=== PATIENT | female | born 1935 | race Caucasian/White ===

== ENCOUNTER 2016-12-08 17:46 | Emergency (ER) | payer MEDICARE, BC ==
--- NOTE | 2016-12-08 18:33 | ER Document Report ---
ED Medical Screen (RME) - General Chief Complaint: General Weakness Stated Complaint: FEVER Time Seen by Provider: 12/08/16 18:26 Mode of Arrival: Wheelchair Information source: Relative Cannot obtain history due to: Altered mental status TRAVEL OUTSIDE OF THE [place] IN LAST 30 DAYS: No - HPI Onset: This morning Onset/Duration: Gradual - WORSENING DURING THE DAY Quality of pain: No pain Associated Symptoms: Weakness, Other - UNSTEADY ON FEET, DECREASED APPETITE. denies: Chills, Fever Exacerbated by: Denies Relieved by: Denies Similar symptoms previously: No Recently seen / treated by doctor: No Notes: 12/08/16 18:30 WORKED IN [employer] YESTERDAY, IN [employer]+ [employer]. - Related Data Smoking: Non-smoker Frequency of alcohol use: None Drug Abuse: None Allergies/Adverse Reactions: oxytetracycline [From Terramycin] Allergy (Verified 12/08/16 17:53) oxytetracycline HCl [From Terramycin] Allergy (Verified 12/08/16 17:53) Sulfa (Sulfonamide Antibiotics) Allergy (Verified 12/08/16 17:53) Unknown reaction Past Medical History - General Information source: Relative - Social History Chew tobacco use (# tins/day): No Frequency of alcohol use: None Drug Abuse: None Lives with: Alone - DAUGHTER NEXT DOOR Family history: Reviewed & Not Pertinent - Past Medical History Cardiac Medical History: Reports: None Denies: Hx Heart Attack, Hx Hypertension Pulmonary Medical History: Reports: None Denies: Hx Asthma EENT Medical History: Reports: None Neurological Medical History: Reports: None. Denies: Hx Cerebrovascular Accident, Hx Seizures Endocrine Medical History: Reports: None Renal/ Medical History: Reports: None. Denies: Hx Peritoneal Dialysis Malignancy Medical History: Reports: None GI Medical History: Reports: Hx Hiatal Hernia. Denies: Hx Hepatitis, Hx Ulcer Musculoskeltal Medical History: Reports Hx Arthritis - RA Psychiatric Medical History: Reports: None Infectious Medical History: Denies: Hx Hepatitis Surgical Hx: Negative Past Surgical History: Denies: Hx Mastectomy, Hx Open Heart Surgery, Hx Pacemaker Review of Systems - Review of Systems Constitutional: Weakness EENT: No symptoms reported Cardiovascular: No symptoms reported Respiratory: No symptoms reported Gastrointestinal: Poor appetite Genitourinary: No symptoms reported. denies: Incontinence Female Genitourinary: Post menopausal Musculoskeletal: No symptoms reported Skin: No symptoms reported Neurological/Psychological: Other - INCREASED FORGETFULNESS Physical Exam - Vital signs Vitals: Temp Pulse Resp BP Pulse Ox 99.3 F 88 20 148/74 H 94 12/08/16 17:52 12/08/16 17:52 12/08/16 17:52 12/08/16 17:52 12/08/16 17:52 Interpretation: Hypertensive. No: Tachycardic, Tachypneic, Febrile - General General appearance: Appears well, Alert In distress: None - HEENT Head: Normocephalic Eyes: Normal. No: Pale conjunctiva Conjunctiva: Normal Ears: Normal Nasal: Normal Mouth/Lips: Normal Mucous membranes: Normal Pharynx: Normal - Respiratory Respiratory status: No respiratory distress Breath sounds: Normal - Cardiovascular Rhythm: Regular Heart sounds: Normal auscultation Murmur: No - Abdominal Inspection: Normal Distension: No distension - Extremities General upper extremity: Normal inspection General lower extremity: Normal inspection Course - Vital Signs Vital signs: Temp Pulse Resp BP Pulse Ox 99.3 F 88 20 148/74 H 94 12/08/16 17:52 12/08/16 17:52 12/08/16 17:52 12/08/16 17:52 12/08/16 17:52
[2016-12-08 19:07] LABS: ABSOLUTE BASOPHILS # (AUTO) 0.1 10^3/uL (0.0-0.2); ABSOLUTE LYMPHOCYTES (AUTO) 1.8 10^3/uL (0.5-4.7); ABSOLUTE MONOCYTES (AUTO) 1.3 10^3/uL (0.1-1.4); ABSOLUTE NEUT (AUTO) 14.3 10^3/uL (1.7-8.2); BASOPHILS % (AUTO) 0.4 % (0-2); HEMATOCRIT 45.2 % (36.0-47.0); HEMOGLOBIN 14.9 g/dL (12.0-15.5); HGB HCT DIFFERENCE -0.5; LYMPHOCYTES % (AUTO) 10.5 % (13-45); MEAN CORPUSCULAR HEMOGLOBIN 28.8 pg (27.0-33.4); MEAN CORPUSCULAR HGB CONC 32.9 g/dL (32.0-36.0); MEAN CORPUSCULAR VOLUME 88 fl (80-97); MONOCYTES % (AUTO) 7.5 % (3-13); RED BLOOD COUNT 5.15 10^6/uL (3.72-5.28); RED CELL DISTRIBUTION WIDTH 13.5 % (11.5-14.0); SEGMENTED NEUTROPHILS % (AUTO) 81.6 % (42-78); WHITE BLOOD COUNT 17.5 10^3/uL (4.0-10.5)
--- NOTE | 2016-12-08 19:20 | ER Document Report ---
ED General - General Chief Complaint: General Weakness Stated Complaint: FEVER Time Seen by Provider: 12/08/16 18:26 Mode of Arrival: Wheelchair Notes: Patient is a 81 year old female that comes to the ED for chief complaint of weakness, body aches, abdominal pain, an episode of vomiting, and feeling hot like she had a fever. She comes with her daughter from home. She states she has felt this way all day, spent most of the day in the garden yesterday in the 95 degree heat. She had a normal nonbloody bowel movement yesterday. She denies hematemesis. She denies headache, chest pain, shortness of breath, flank pain, dysuria, cough. Past medical history of rheumatoid arthritis, on both Humira and methotrexate, she denies any other medical history other than appendectomy and hysterectomy. TRAVEL OUTSIDE OF THE [place] IN LAST 30 DAYS: No - Related Data Allergies/Adverse Reactions: oxytetracycline [From Terramycin] Allergy (Verified 12/08/16 17:53) oxytetracycline HCl [From Terramycin] Allergy (Verified 12/08/16 17:53) Sulfa (Sulfonamide Antibiotics) Allergy (Verified 12/08/16 17:53) Unknown reaction Past Medical History - General Information source: Patient, Relative - Social History Smoking Status: Never Smoker Chew tobacco use (# tins/day): No Frequency of alcohol use: None Drug Abuse: None Lives with: Alone - DAUGHTER NEXT DOOR Family History: Reviewed & Not Pertinent - Past Medical History Cardiac Medical History: Reports: None Denies: Hx Heart Attack, Hx Hypertension Pulmonary Medical History: Reports: None Denies: Hx Asthma EENT Medical History: Reports: None Neurological Medical History: Reports: None. Denies: Hx Cerebrovascular Accident, Hx Seizures Endocrine Medical History: Reports: None Renal/ Medical History: Reports: None. Denies: Hx Peritoneal Dialysis Malignancy Medical History: Reports: None GI Medical History: Reports: Hx Hiatal Hernia. Denies: Hx Hepatitis, Hx Ulcer Musculoskeltal Medical History: Reports Hx Arthritis - RA Psychiatric Medical History: Reports: None Infectious Medical History: Denies: Hx Hepatitis Surgical Hx: Negative Past Surgical History: Denies: Hx Mastectomy, Hx Open Heart Surgery, Hx Pacemaker - Immunizations Hx Pneumococcal Vaccination: 05/26/07 Review of Systems - Review of Systems Constitutional: See HPI EENT: No symptoms reported Cardiovascular: No symptoms reported Respiratory: No symptoms reported Gastrointestinal: See HPI Genitourinary: No symptoms reported Female Genitourinary: No symptoms reported Musculoskeletal: No symptoms reported Skin: No symptoms reported Hematologic/Lymphatic: No symptoms reported Neurological/Psychological: No symptoms reported Physical Exam - Vital signs Vitals: Temp Pulse Resp BP Pulse Ox 99.3 F 88 20 148/74 H 94 12/08/16 17:52 12/08/16 17:52 12/08/16 17:52 12/08/16 17:52 12/08/16 17:52 Interpretation: Normal - General General appearance: Appears well, Alert In distress: None - HEENT Head: Normocephalic, Atraumatic Eyes: Normal Conjunctiva: Normal Extraocular movements intact: Yes Eyelashes: Normal Pupils: PERRL Sinus: Normal Nasal: Normal Mouth/Lips: Normal Mucous membranes: Normal Pharynx: Normal Neck: Normal. No: Meningismus - Respiratory Respiratory status: No respiratory distress Chest status: Nontender Breath sounds: Normal. No: Decreased air movement, Wheezing Chest palpation: Normal - Cardiovascular Rhythm: Regular. No: Tachycardia Heart sounds: Normal auscultation, S1 appreciated, S2 appreciated Murmur: No - Abdominal Inspection: Normal Distension: No distension Bowel sounds: Normal Tenderness: Tender - There is some tenderness in the bilateral lower quadrants, upper abdomen is completely benign, no rigidity, guarding, or rebound tenderness. Bowel sounds present. Organomegaly: No organomegaly - Back Back: Normal, Nontender. No: Tender - Extremities General upper extremity: Normal inspection, Nontender, Normal ROM, Normal strength General lower extremity: Normal inspection, Nontender, Normal ROM, Normal strength - Neurological Neuro grossly intact: Yes Cognition: Normal Orientation: AAOx4 Javier Coma Scale Eye Opening: Spontaneous [place] Coma Scale Verbal: Oriented [place] Coma Scale Motor: Obeys Commands Javier Coma Scale Total: 15 Speech: Normal Motor strength normal: LUE, RUE, LLE, RLE Sensory: Normal - Psychological Associated symptoms: Normal affect, Normal mood - Skin Skin Temperature: Warm Skin Moisture: Dry Skin Color: Normal Course - Re-evaluation Re-evalutation: Patient is actually quite well-appearing, she is smiling, talkative, patient does have some lower abdominal tenderness on initial examination but she is not toxic in appearance. Vital signs unremarkable including no fever, tachycardia, or hypotension. Leukocytosis at 17.5, could be from vomiting, this is nonspecific. Chemistry generally unremarkable, urine showing large leukocyte esterase and some white blood cells with no nitrates or bacteria. Patient with no dysuria or flank pain. Because of reported vomiting, abdominal pain, and leukocytosis decision was made to perform CAT scan imaging, however this shows absolutely no acute abnormality. On reevaluation patient stating that she wants to get up and walk , she ambulated without any difficulty, she states her pain is gone and she feels great. Did discuss potential infections although patient does not have a cough, any abnormal lung auscultation, her abdomen is now soft, she has no nuchal rigidity or headache, she has no current complaints. Also discussed potential admission to the hospital because of her age and immunocompromise condition, however they are requesting to leave. Patient will be covered for urinary tract infection with Keflex, given dose now, cultures of blood and urine placed, discussed recommended follow-up and strict return precautions. The patient and daughter state understanding and agreement. - Vital Signs Vital signs: Temp Pulse Resp BP Pulse Ox 99.4 F 88 24 H 121/60 96 12/08/16 23:27 12/08/16 17:52 12/08/16 23:04 12/08/16 23:04 12/08/16 23:04 - Laboratory Result Diagrams: 12/08/16 18:45 12/08/16 19:35 Laboratory results interpreted by me: 12/08/16 12/08/16 12/08/16 18:45 19:35 20:45 WBC 17.5 H Seg Neutrophils % 81.6 H Lymphocytes % 10.5 L Absolute Neutrophils 14.3 H Sodium 134.3 L Est GFR (Non-Af Amer) 54 L Glucose 117 H Total Protein 8.8 H Urine Ketones TRACE H Urine Blood SMALL H Ur Leukocyte Esterase SMALL H Discharge - Discharge Clinical Impression: Vomiting Qualifiers: Vomiting type: unspecified Vomiting Intractability: non-intractable Nausea presence: unspecified Qualified Code(s): R11.10 - Vomiting, unspecified Abdominal pain Qualifiers: Abdominal location: generalized Qualified Code(s): R10.84 - Generalized abdominal pain Condition: Stable Disposition: HOME, SELF-CARE Additional Instructions: Your cat scan shows no concerning abnormality. Your urine shows possible developing infection, take the antibiotic as prescribed. Follow up with your provider in the next several days. Return immediately if you develop any concerning symptoms - returned or worsening abdominal pain, vomiting, fever, difficulty breathing, or any other concerning symptoms. Prescriptions: Cephalexin Monohydrate [Keflex 500 mg Capsule] 500 mg PO BID #10 capsule
--- NOTE | 2016-12-08 20:04 | RADIOLOGY REPORT (SQ) ---
EXAM DESCRIPTION: CT HEAD WITHOUT COMPLETED DATE/TIME: 12/08/2016 7:46 pm REASON FOR STUDY: ALTERED MENTAL STATUS COMPARISON: None. TECHNIQUE: Axial images acquired through the brain without intravenous contrast. Images reviewed wi th bone, brain and subdural windows. Images stored on PACS. All CT scanners at this facility use dose modulation, iterative reconstruction, and/or weight based d osing when appropriate to reduce radiation dose to as low as reasonably achievable (ALARA). [facility]: Dose Right [facility]: CareDose [facility]: Dose Right [facility]: Teradose 4D [facility]: Smart Cause.it RADIATION DOSE: Up-to-date CT equipment and radiation dose reduction techniques were employed. CTDIv ol: 64.6 mGy. DLP: 1163 mGy-cm. mGy. LIMITATIONS: Mild motion artifact. This does not appear to significantly limit evaluation of the br ain. FINDINGS: VENTRICLES: Normal size and contour. CEREBRUM: No masses. No hemorrhage. No midline shift. Normal armstrong/white matter differentiation. N o evidence for acute infarction. CEREBELLUM: No masses. No hemorrhage. No alteration of density. No evidence for acute infarction. EXTRAAXIAL SPACES: No fluid collections. No masses. ORBITS AND GLOBE: No intra- or extraconal masses. Normal contour of globe without masses. CALVARIUM: No fracture. PARANASAL SINUSES: No fluid or mucosal thickening. SOFT TISSUES: No mass or hematoma. OTHER: No other significant finding. IMPRESSION: NORMAL BRAIN CT WITHOUT CONTRAST. TECHNICAL DOCUMENTATION: JOB ID: [id number] Quality ID # [id number]: Final reports with documentation of one or more dose reduction techniques (e.g., Au tomated exposure control, adjustment of the mA and/or kV according to patient size, use of iterative reconstruction technique) 2010 [employer]- All Rights Reserved
[2016-12-08 20:05] LABS: ALANINE AMINOTRANSFERASE 26 U/L (9-52); ALBUMIN 4.4 g/dL (3.5-5.0); ALKALINE PHOSPHATASE 79 U/L (38-126); ANION GAP 12 (5-19); ASPARTATE AMINO TRANSFERASE 27 U/L (14-36); BILIRUBIN,DIRECT 0.3 mg/dL (0.0-0.4); BILIRUBIN,TOTAL 0.9 mg/dL (0.2-1.3); BLOOD UREA NITROGEN 15 mg/dL (7-20); CALCIUM 9.2 mg/dL (8.4-10.2); CARBON DIOXIDE 23 mmol/L (22-30); CHLORIDE 99 mmol/L (98-107); CREATINE KINASE 107 U/L (30-135); CREATININE RESULT 0.99 mg/dL (0.52-1.25); GLUCOSE 117 mg/dL (75-110); POTASSIUM 4.6 mmol/L (3.6-5.0); SODIUM 134.3 mmol/L (137-145); TOTAL PROTEIN 8.8 g/dL (6.3-8.2)
--- NOTE | 2016-12-08 20:09 | RADIOLOGY REPORT (SQ) ---
EXAM DESCRIPTION: CHEST PA/LAT COMPLETED DATE/TIME: 12/08/2016 7:53 pm REASON FOR STUDY: weakness, possible fever, immunocompromised COMPARISON: 2010. TECHNIQUE: Frontal and lateral radiographic views of the chest acquired. NUMBER OF VIEWS: Two view. LIMITATIONS: None. FINDINGS: LUNGS AND PLEURA: Mild prominence of lung markings, patchy right greater than left. Poten tially related to bronchitis. Consolidating pneumonia not appreciated. No nodules or masses or pleu ral fluid. MEDIASTINUM AND HILAR STRUCTURES: No masses or contour abnormalities. HEART AND VASCULAR STRUCTURES: Heart normal size. No evidence for failure. BONES: No acute findings. HARDWARE: None in the chest. OTHER: No other significant finding. IMPRESSION: Mild lung changes as above but no clear evidence of pneumonia. TECHNICAL DOCUMENTATION: JOB ID: [id number] [employer]- All Rights Reserved
[2016-12-08 20:20] LABS: TROPONIN I < 0.012 ng/mL
[2016-12-08] MEDS ORDERED: ONDANSETRON HCL INJ/PF 4 MG/2 ML SDV IV ONE (20:30)
[2016-12-08 21:05] LABS: APPEARANCE,URINE CLEAR; BILIRUBIN,URINE NEGATIVE (NEGATIVE); GLUCOSE, URINE NEGATIVE (NEGATIVE); KETONES,URINE TRACE mg/dL (NEGATIVE); LEUKOCYTE ESTERASE,URINE SMALL (NEGATIVE); NITRITE,URINE NEGATIVE (NEGATIVE); PROTEIN,URINE NEGATIVE (NEGATIVE); URINE SPECIFIC GRAVITY 1.008; UROBILINOGEN,URINE NEGATIVE mg/dL (<2.0)
--- NOTE | 2016-12-08 22:01 | EKG REPORT ---
SEVERITY:- BORDERLINE ECG - SINUS RHYTHM BORDERLINE INFERIOR Q WAVES : Confirmed by: Alek Conde MD 08-Dec-2016 22:00:46
--- NOTE | 2016-12-08 23:15 | RADIOLOGY REPORT (SQ) ---
EXAM DESCRIPTION: CT ABD/PELVIS WITH IV ORAL COMPLETED DATE/TIME: 12/08/2016 10:52 pm REASON FOR STUDY: abdominal pain, vomiting, leukocytosis COMPARISON: None. TECHNIQUE: CT scan of the abdomen and pelvis performed with intravenous and oral contrast using jim francis scanning technique with dynamic intravenous contrast injection. Images reviewed with lung, soft t issue, and bone windows. Reconstructed coronal and sagittal MPR images reviewed. Delayed images for e valuation of the urinary system also acquired. All images stored on PACS. All CT scanners at this facility use dose modulation, iterative reconstruction, and/or weight based d osing when appropriate to reduce radiation dose to as low as reasonably achievable (ALARA). [facility]: Dose Right [facility]: CareDose [facility]: Dose Right [facility]: Teradose 4D [facility]: Fantasy [employer] CONTRAST TYPE AND DOSE: contrast/concentration: Isovue 370.00 mg/ml; Total Contrast Delivered: 62.0 ml; Total Saline Delivered: 65.0 ml RENAL FUNCTION: Creatinine 0.99 RADIATION DOSE: Up-to-date CT equipment and radiation dose reduction techniques were employed. CTDIv ol: 5.1 - 6.3 mGy. DLP: 553 mGy-cm.. LIMITATIONS: None. FINDINGS: LOWER CHEST: No significant findings. No nodules or infiltrates. LIVER: Normal size. No masses. No dilated ducts. SPLEEN: Normal size. No focal lesions. PANCREAS: No masses. No significant calcifications. No adjacent inflammation or peripancreatic fluid collections. Pancreatic duct not dilated. GALLBLADDER: No identified stones by CT criteria. No inflammatory changes to suggest cholecystitis. ADRENAL GLANDS: No significant masses or asymmetry. RIGHT KIDNEY AND URETER: No solid masses. No significant calcification. No hydronephrosis or hydroure ter. LEFT KIDNEY AND URETER: No solid masses. No significant calcification. No hydronephrosis or hydrouret er. AORTA AND VESSELS: No aneurysm. No dissection. Renal arteries, SMA, celiac without stenosis. RETROPERITONEUM: No retroperitoneal adenopathy, hemorrhage or masses. BOWEL AND PERITONEAL CAVITY: Distal bowel diverticulosis. No active inflammatory changes. No eviden ce of bowel obstruction, ascites or abnormal gas. APPENDIX: Not visualized. PELVIS: No significant masses. Normal bladder. No free fluid. ABDOMINAL WALL: No masses. No hernias. BONES: No significant or acute findings. OTHER: No other significant finding. IMPRESSION: No acute or suspicious abdominopelvic abnormality. TECHNICAL DOCUMENTATION: JOB ID: [id number] Quality ID # [id number]: Final reports with documentation of one or more dose reduction techniques (e.g., Au tomated exposure control, adjustment of the mA and/or kV according to patient size, use of iterative reconstruction technique) 2010 [employer]- All Rights Reserved
[2016-12-08] MEDS ORDERED: CEPHALEXIN 500 MG CAPSULE PO ONE (23:30)
[2016-12-08] MEDS ORDERED: ONDANSETRON ODT 4 MG TAB (6 TAB/DSPK) PO PRN (23:30)
[2016-12-08 23:46] VITALS: BP 121/60
== END 2016-12-08 23:46 | disposition home or self-care (01) ==
LOC: ER 17:46
DX: R11.10 Vomiting, unspecified (principal); R10.84 Generalized abdominal pain; R53.1 Weakness; R50.9 Fever, unspecified; R52 Pain, unspecified
CPT/HCPCS: 93005; 99285; 96374; 36415; 87040; 87086; 82553; 82550; 85025; 87088; 80053; 81001; 84484; 71020; 70450; 74177; 93010; A9270 ×2; J2405

== ENCOUNTER 2016-12-19 13:36 | Inpatient (IN) | payer MEDICARE, BC ==
[2016-12-19] MEDS ORDERED: ACETAMINOPHEN 325 MG TABLET PO ONE (14:09)
[2016-12-19] MEDS ORDERED: NORMAL SALINE 1000 ML 1,000 ML IV PRN ×2 (14:11→16:59)
--- NOTE | 2016-12-19 14:11 | ER Document Report ---
ED Fever - General Chief Complaint: Fever Stated Complaint: WEAKNESS Time Seen by Provider: 12/19/16 13:51 Mode of Arrival: Stretcher Information source: Patient, Relative - daughter Parul TRAVEL OUTSIDE OF THE [place] IN LAST 30 DAYS: No - HPI Patient complains to provider of: Generalized weakness, fever Onset: Last week Onset/Duration: Persistent Quality of pain: Achy Severity: Moderate Pain Level: 3 Associated symptoms: Nausea, Weakness Similar symptoms previously: Yes Recently seen / treated by doctor: Yes Notes: Patient is a 81-year-old female brought to the emergency room by EMS with daughter at bedside, for complaints of generalized weakness has been persistent for the past week, she is also noted to have a fever of 102 today, daughter does report decreased p.o. intake over the last 1-2 days, patient has been reporting abdominal pain, mainly in the suprapubic region as well, no recent injury, no sick contacts, she was seen in this emergency room for generalized weakness approximately 1 week ago, followed up with her jboss architect as well, but daughter reports that she has not had any improvement of symptoms over the past week - Related Data Allergies/Adverse Reactions: oxytetracycline [From Terramycin] Allergy (Verified 12/19/16 14:08) oxytetracycline HCl [From Terramycin] Allergy (Verified 12/19/16 14:08) Sulfa (Sulfonamide Antibiotics) Allergy (Verified 12/19/16 14:08) Unknown reaction Past Medical History - General Information source: Patient, Relative - Social History Smoking Status: Never Smoker Family History: Reviewed & Not Pertinent Patient has suicidal ideation: No Patient has homicidal ideation: No - Past Medical History Cardiac Medical History: Denies: Hx Heart Attack, Hx Hypertension Pulmonary Medical History: Denies: Hx Asthma Neurological Medical History: Denies: Hx Cerebrovascular Accident, Hx Seizures Renal/ Medical History: Denies: Hx Peritoneal Dialysis GI Medical History: Reports: Hx Hiatal Hernia. Denies: Hx Hepatitis, Hx Ulcer Musculoskeltal Medical History: Reports Hx Arthritis - RA Infectious Medical History: Denies: Hx Hepatitis Surgical Hx: Negative Past Surgical History: Denies: Hx Mastectomy, Hx Open Heart Surgery, Hx Pacemaker - Immunizations Hx Pneumococcal Vaccination: 05/26/07 Review of Systems - Review of Systems Constitutional: Chills, Fever, Malaise, Weakness EENT: No symptoms reported Cardiovascular: No symptoms reported Respiratory: No symptoms reported Gastrointestinal: Abdominal pain, Nausea Genitourinary: Frequency Female Genitourinary: No symptoms reported Musculoskeletal: No symptoms reported Skin: No symptoms reported Hematologic/Lymphatic: No symptoms reported Neurological/Psychological: No symptoms reported -: Yes All other systems reviewed and negative Physical Exam - Vital signs Vitals: Resp BP Pulse Ox 26 H 133/65 H 95 12/19/16 13:52 12/19/16 13:52 12/19/16 13:52 Interpretation: Febrile - General General appearance: Appears well, Alert - HEENT Head: Normocephalic, Atraumatic Eyes: Normal Pupils: PERRL - Respiratory Respiratory status: No respiratory distress Chest status: Nontender Breath sounds: Normal Chest palpation: Normal - Cardiovascular Rhythm: Regular Heart sounds: Normal auscultation Murmur: No - Abdominal Inspection: Normal Distension: No distension Bowel sounds: Normal Tenderness: Tender - Suprapubic Organomegaly: No organomegaly - Back Back: Normal, Nontender - Extremities General upper extremity: Normal inspection, Nontender, Normal color, Normal ROM , Normal temperature General lower extremity: Normal inspection, Nontender, Normal color, Normal ROM , Normal temperature, Normal weight bearing. No: Danita's sign - Neurological Neuro grossly intact: Yes Cognition: Normal Orientation: AAOx4 Javier Coma Scale Eye Opening: Spontaneous Javier Coma Scale Verbal: Oriented Javier Coma Scale Motor: Obeys Commands [place] Coma Scale Total: 15 Speech: Normal Motor strength normal: LUE, RUE, LLE, RLE Sensory: Normal - Psychological Associated symptoms: Normal affect, Normal mood - Skin Skin Temperature: Warm Skin Moisture: Dry Skin Color: Normal Course - Re-evaluation Re-evalutation: 12/19/16 17:05 Patient was discussed with Dr. Gerardo, who agrees to admit patient for further evaluation and treatment of sepsis of unknown source - Vital Signs Vital signs: Temp Pulse Resp BP Pulse Ox 98.9 F 88 20 91/50 L 95 12/19/16 15:28 12/19/16 13:54 12/19/16 16:14 12/19/16 16:14 12/19/16 16:14 - Laboratory Result Diagrams: 12/19/16 14:38 12/19/16 15:57 Laboratory results interpreted by me: 12/19/16 12/19/16 12/19/16 14:38 14:38 15:13 WBC 27.2 H Seg Neuts % (Manual) 85 H Lymphocytes % (Manual) 5 L Abs Neuts (Manual) 24.5 H Sodium Carbon Dioxide Est GFR (Non-Af Amer) Calcium AST Creatine Kinase NT-Pro-B Natriuret Pep 673 H Albumin Urine Blood MODERATE H 12/19/16 15:57 WBC Seg Neuts % (Manual) Lymphocytes % (Manual) Abs Neuts (Manual) Sodium 136.4 L Carbon Dioxide 21 L Est GFR (Non-Af Amer) 59 L Calcium 7.9 L AST 77 H Creatine Kinase 2476 H NT-Pro-B Natriuret Pep Albumin 3.4 L Urine Blood - Diagnostic Test Radiology reviewed: Image reviewed, Reports reviewed - EKG Interpretation by Me EKG shows normal: Sinus rhythm Rate: Normal Rhythm: NSR When compared to previous EKG there are: No significant change - Transfer of Care Care transferred to following provider: Dr. Gerardo Critical Care Note - Critical Care Note Total time excluding time spent on procedures (mins): 45 Comments: Patient with evidence of sepsis, with hypotension, fever, leukocytosis, requiring admission to the IMCU Discharge - Discharge Clinical Impression: Sepsis Qualifiers: Sepsis type: sepsis due to unspecified organism Qualified Code(s): A41.9 - Sepsis, unspecified organism Condition: Serious Disposition: ADMITTED INPATIENT Admitting Provider: Hospitalist Unit Admitted: [facility] Referrals: JULIANN KIDD MD [Primary Care Provider] - Follow up as needed
--- NOTE | 2016-12-19 14:46 | RADIOLOGY REPORT (SQ) ---
EXAM DESCRIPTION: CHEST SINGLE VIEW COMPLETED DATE/TIME: 12/19/2016 2:32 pm REASON FOR STUDY: cough COMPARISON: 12/08/2016 EXAM PARAMETERS: NUMBER OF VIEWS: One view. TECHNIQUE: Single frontal radiographic view of the chest acquired. RADIATION DOSE: NA LIMITATIONS: None. FINDINGS: LUNGS AND PLEURA: Chronic interstitial changes. No opacities, masses or pneumothorax. No pleural effusion. MEDIASTINUM AND HILAR STRUCTURES: No masses. Contour normal. HEART AND VASCULAR STRUCTURES: Heart normal in size. Normal vasculature. BONES: No acute findings. HARDWARE: None in the chest. OTHER: No other significant finding. IMPRESSION: NO ACUTE RADIOGRAPHIC FINDING IN THE CHEST. TECHNICAL DOCUMENTATION: JOB ID: [id number]
[2016-12-19 15:03] LABS: HEMATOCRIT 40.2 % (36.0-47.0); HEMOGLOBIN 13.3 g/dL (12.0-15.5); HGB HCT DIFFERENCE -0.3; MEAN CORPUSCULAR HEMOGLOBIN 29.2 pg (27.0-33.4); MEAN CORPUSCULAR HGB CONC 33.2 g/dL (32.0-36.0); MEAN CORPUSCULAR VOLUME 88 fl (80-97); RED BLOOD COUNT 4.57 10^6/uL (3.72-5.28); WHITE BLOOD COUNT 27.2 10^3/uL (4.0-10.5)
[2016-12-19 15:27] LABS: BAND NEUTROPHILS % (MANUAL) 5 % (3-5); BASOPHILS % (MANUAL) 0 % (0-2); EOSINOPHILS % (MANUAL) 0 % (0-6); LYMPHOCYTES % (MANUAL) 5 % (13-45); TOTAL CELLS COUNTED 100
[2016-12-19 15:28] LABS: PLATELET CLUMPS PRESENT; TOXIC GRANULATION SLIGHT; TOXIC VACUOLATION PRESENT
[2016-12-19 15:29] LABS: RBC MORPHOLOGY COMMENT NORMO-CYTIC/CHROMIC
[2016-12-19 15:43] LABS: TROPONIN I < 0.012 ng/mL
[2016-12-19 16:23] LABS: ALANINE AMINOTRANSFERASE 40 U/L (9-52); ALBUMIN 3.4 g/dL (3.5-5.0); ALKALINE PHOSPHATASE 59 U/L (38-126); ANION GAP 10 (5-19); ASPARTATE AMINO TRANSFERASE 77 U/L (14-36); BILIRUBIN,DIRECT 0.3 mg/dL (0.0-0.4); BILIRUBIN,TOTAL 0.7 mg/dL (0.2-1.3); BLOOD UREA NITROGEN 16 mg/dL (7-20); CALCIUM 7.9 mg/dL (8.4-10.2); CARBON DIOXIDE 21 mmol/L (22-30); CHLORIDE 105 mmol/L (98-107); CREATININE RESULT 0.92 mg/dL (0.52-1.25); GLUCOSE 106 mg/dL (75-110); POTASSIUM 4.2 mmol/L (3.6-5.0); SODIUM 136.4 mmol/L (137-145); TOTAL PROTEIN 7.3 g/dL (6.3-8.2)
[2016-12-19 16:31] LABS: CREATINE KINASE 2476 U/L (30-135)
[2016-12-19 16:41] LABS: APPEARANCE,URINE CLEAR; BILIRUBIN,URINE NEGATIVE (NEGATIVE); GLUCOSE, URINE NEGATIVE (NEGATIVE); KETONES,URINE NEGATIVE (NEGATIVE); LEUKOCYTE ESTERASE,URINE NEGATIVE (NEGATIVE); NITRITE,URINE NEGATIVE (NEGATIVE); PROTEIN,URINE NEGATIVE (NEGATIVE); URINE SPECIFIC GRAVITY 1.013; UROBILINOGEN,URINE NEGATIVE mg/dL (<2.0)
[2016-12-19] MEDS ORDERED: CEFTRIAXONE INJ 1000 MG VIAL IV ONE (16:59)
--- NOTE | 2016-12-19 17:20 | EKG REPORT ---
SEVERITY:- BORDERLINE ECG - SINUS RHYTHM BORDERLINE INFERIOR Q WAVES BORDERLINE T ABNORMALITIES, INFERIOR LEADS : Confirmed by: Mary Barajas MD 19-Dec-2016 17:19:37
[2016-12-19] MEDS ORDERED: ACETAMINOPHEN 325 MG TABLET PO PRN (17:31)
[2016-12-19] MEDS ORDERED: ONDANSETRON HCL INJ/PF 4 MG/2 ML SDV IV PRN (17:31)
--- NOTE | 2016-12-19 17:49 | PDOC H&P ---
History of Present Illness Admission Date/PCP: 12/19/16 17:28 JULIANN KIDD MD Patient complains of: Fever, weakness History of Present Illness: ZACHERY IVEY is a 81 year old female with past medical history of rheumatoid arthritis on Humira and methotrexate presents with 10 days fever, weakness. She was evaluated in the emergency department on 12/09/2016 for similar symptoms in addition to nausea, vomiting, abdominal pain. During that emergency department evaluation she had a CT of the abdomen and pelvis was negative. Blood cultures at that time were no growth. Urine culture grew group B streptococcus. Patient was diagnosed with urinary tract infection and discharged home on Keflex. She feels like she has gotten generally worse since then. She is accompanied by her daughter who states that she has not been eating very well and has had difficulty ambulating secondary to weakness. Patient also complains of diffuse muscle aching. She denies headache, neck stiffness, photophobia, chest pain, shortness of breath, dysuria, diarrhea. Past Medical History Cardiac Medical History: Denies: Myocardial Infarction, Hypertension Pulmonary Medical History: Denies: Asthma Neurological Medical History: Denies: Seizures GI Medical History: Reports: Hiatal Hernia Denies: Hepatitis Musculoskeltal Medical History: Reports: Arthritis - RA Hematology: Denies: Anemia, Sickle Cell Disease Past Surgical History Past Surgical History: Reports: Appendectomy, Hysterectomy, Orthopedic Surgery - ORIF left hip Social History Information Source: Patient, Relative Lives with: Alone Smoking Status: Never Smoker Frequency of Alcohol Use: None Hx Recreational Drug Use: No - Advance Directive Resuscitation Status: Full Code Family History Family History: Other - Rheumatoid arthritis, dementia, osteoarthritis Parental Family History Reviewed: Yes Children Family History Reviewed: Yes Sibling(s) Family History Reviewed.: Yes Medication/Allergy Home Medications: Adalimumab [Humira] 20 mg SQ [id number] 07/01/11 Cholecalciferol (Vitamin D3) [Vitamin D] 400 unit PO DAILY 07/01/11 Folic Acid 1 mg PO DAILY 07/01/11 Methotrexate Sodium [Methotrexate] 2.5 mg PO DAILY 07/01/11 Allergies/Adverse Reactions: oxytetracycline [From Terramycin] Allergy (Verified 12/19/16 14:08) oxytetracycline HCl [From Terramycin] Allergy (Verified 12/19/16 14:08) Sulfa (Sulfonamide Antibiotics) Allergy (Verified 12/19/16 14:08) Unknown reaction Review of Systems Constitutional: PRESENT: fatigue, fever(s), weakness. ABSENT: chills, headache( s), weight gain, weight loss Eyes: ABSENT: visual disturbances Ears: ABSENT: hearing changes Cardiovascular: ABSENT: chest pain, dyspnea on exertion, edema, orthropnea, palpitations Respiratory: ABSENT: cough, hemoptysis Gastrointestinal: PRESENT: abdominal pain, nausea. ABSENT: constipation, diarrhea, hematemesis, hematochezia, vomiting Genitourinary: ABSENT: dysuria, hematuria Musculoskeletal: PRESENT: other - Myalgias. ABSENT: joint swelling Integumentary: ABSENT: rash, wounds Neurological: ABSENT: abnormal gait, abnormal speech, confusion, dizziness, focal weakness, syncope Psychiatric: ABSENT: anxiety, depression, homidical ideation, suicidal ideation Endocrine: ABSENT: cold intolerance, heat intolerance, polydipsia, polyuria Hematologic/Lymphatic: ABSENT: easy bleeding, easy bruising Physical Exam Vital Signs: Temp Pulse Resp BP Pulse Ox 98.9 F 88 18 95/55 L 96 12/19/16 15:28 12/19/16 13:54 12/19/16 17:14 12/19/16 17:14 12/19/16 17:14 PHYSICAL EXAM: GENERAL: Appears well, no acute distress HEENT: Normocephalic, no scleral icterus, conjunctiva clear, EOEM intact, PERRLA , moist mucous membranes NECK: trachea midline, no thyromegally RESPIRATORY: Clear to auscultation, no wheezes/rhonchi CARDIAC: Regular rate and rhythm, no murmur/gabrielle/rub ABDOMEN: Soft, no distension, right-sided abdominal tenderness and guarding, normal bowel sounds, negative Gupta sign RECTAL: deferred : deferred EXTREMITIES: No edema, cyanosis, clubbing MUSCULOSKELETAL: No joint swelling or deformity VASCULAR: normal peripheral pulses NEUROLOGIC: Alert, oriented to person/place/time, normal speech, cranial nerves grossly intact, 5/5 strength in all extremities, tactile sensation intact in all extremities SKIN: No rash, no wounds, no worrisome skin lesions PSYCHIATRIC: Normal mood, normal affect Results Laboratory Results: Labs- All tests 24 hr 12/19/16 12/19/16 12/19/16 14:38 14:38 14:38 WBC 27.2 H RBC 4.57 Hgb 13.3 Hct 40.2 MCV 88 MCH 29.2 MCHC 33.2 RDW 13.0 Plt Count 204 Total Counted 100 Seg Neutrophils % Not Reportable Seg Neuts % (Manual) 85 H Band Neutrophils % 5 Lymphocytes % Not Reportable Lymphocytes % (Manual) 5 L Atypical Lymphs % 1 Monocytes % Not Reportable Monocytes % (Manual) 4 Eosinophils % Not Reportable Eosinophils % (Manual) 0 Basophils % Not Reportable Basophils % (Manual) 0 Absolute Neutrophils Not Reportable Abs Neuts (Manual) 24.5 H Absolute Lymphocytes Not Reportable Abs Lymphs (Manual) 1.6 Absolute Monocytes Not Reportable Abs Monocytes (Manual) 1.1 Absolute Eosinophils Not Reportable Absolute Eos (Manual) 0.0 Absolute Basophils Not Reportable Abs Basophils (Manual) 0.0 Toxic Granulation SLIGHT Toxic Vacuolation PRESENT Clumped Platelets PRESENT Platelet Comment ADEQUATE RBC Morph Comment NORMO-CYTIC/CHROMIC Sodium Cancelled Potassium Cancelled Chloride Cancelled Carbon Dioxide Cancelled Anion Gap Cancelled BUN Cancelled Creatinine Cancelled Est GFR ( Amer) Cancelled Est GFR (Non-Af Amer) Cancelled Glucose Cancelled Lactic Acid Calcium Cancelled Total Bilirubin Cancelled Direct Bilirubin Cancelled Indirect Bilirubin Cancelled Neonat Total Bilirubin Cancelled AST Cancelled ALT Cancelled Alkaline Phosphatase Cancelled Creatine Kinase Cancelled Troponin I < 0.012 NT-Pro-B Natriuret Pep 673 H Total Protein Cancelled Albumin Cancelled Urine Color Urine Appearance Urine pH Ur Specific [place] Urine Protein Urine Glucose (UA) Urine Ketones Urine Blood Urine Nitrite Urine Bilirubin Urine Urobilinogen Ur Leukocyte Esterase Urine WBC (Auto) Urine RBC (Auto) Squamous Epi Cells Auto Urine Mucus (Auto) Urine Ascorbic Acid 12/19/16 12/19/16 12/19/16 14:38 15:13 15:57 WBC RBC Hgb Hct MCV MCH MCHC RDW Plt Count Total Counted Seg Neutrophils % Seg Neuts % (Manual) Band Neutrophils % Lymphocytes % Lymphocytes % (Manual) Atypical Lymphs % Monocytes % Monocytes % (Manual) Eosinophils % Eosinophils % (Manual) Basophils % Basophils % (Manual) Absolute Neutrophils Abs Neuts (Manual) Absolute Lymphocytes Abs Lymphs (Manual) Absolute Monocytes Abs Monocytes (Manual) Absolute Eosinophils Absolute Eos (Manual) Absolute Basophils Abs Basophils (Manual) Toxic Granulation Toxic Vacuolation Clumped Platelets Platelet Comment RBC Morph Comment Sodium 136.4 L Potassium 4.2 Chloride 105 Carbon Dioxide 21 L Anion Gap 10 BUN 16 Creatinine 0.92 Est GFR ( Amer) > 60 Est GFR (Non-Af Amer) 59 L Glucose 106 Lactic Acid 1.3 Calcium 7.9 L Total Bilirubin 0.7 Direct Bilirubin 0.3 Indirect Bilirubin Not Reportable Neonat Total Bilirubin Not Reportable AST 77 H ALT 40 Alkaline Phosphatase 59 Creatine Kinase 2476 H Troponin I NT-Pro-B Natriuret Pep Total Protein 7.3 Albumin 3.4 L Urine Color YELLOW Urine Appearance CLEAR Urine pH 5.0 Ur Specific [place] 1.013 Urine Protein NEGATIVE Urine Glucose (UA) NEGATIVE Urine Ketones NEGATIVE Urine Blood MODERATE H Urine Nitrite NEGATIVE Urine Bilirubin NEGATIVE Urine Urobilinogen NEGATIVE Ur Leukocyte Esterase NEGATIVE Urine WBC (Auto) 1 Urine RBC (Auto) 1 Squamous Epi Cells Auto <1 Urine Mucus (Auto) OCC Urine Ascorbic Acid NEGATIVE EKG Comments: Sinus rhythm, borderline T-wave changes inferiorly Impressions: Chest X-Ray 12/19/16 13:51 IMPRESSION: NO ACUTE RADIOGRAPHIC FINDING IN THE CHEST. Assessment & Plan - Diagnosis (1) Sepsis Qualifiers: Sepsis type: sepsis due to unspecified organism Qualified Code(s): A41.9 - Sepsis, unspecified organism Is this a current diagnosis for this admission?: YesPlan: Etiology unknown at this time. I am concerned that patient is on Humira and methotrexate. Continue IV Rocephin initiated in the emergency department. Check blood culture, urine culture. Check CT scan chest/abdomen/pelvis. Check right upper quadrant ultrasound. Patient was treated for recent urinary tract infection on 12/09/2016 with urine culture growing group B streptococcus at that time. (2) Abdominal pain Is this a current diagnosis for this admission?: YesPlan: Check CT scan chest/abdomen/pelvis. Check right upper quadrant ultrasound. (3) Rhabdomyolysis Is this a current diagnosis for this admission?: YesPlan: IV fluids. Follow-up CPK levels. Check sed rate and C-reactive protein. (4) Rheumatoid arthritis Is this a current diagnosis for this admission?: YesPlan: Hold Humira and methotrexate for now until infectious disease issues addressed. Patient is followed by Dr. Moustapha Kidd of rheumatology. (5) Memory impairment Is this a current diagnosis for this admission?: YesPlan: Patient seems to have mild memory impairments as she does not remember which hip he had ORIF on several years ago. She has no known history of dementia and currently resides alone with her daughter living next door. - Time Time Spent: Greater than 70 Minutes
--- NOTE | 2016-12-19 19:03 | RADIOLOGY REPORT (SQ) ---
EXAM DESCRIPTION: CT CHEST WITH COMPLETED DATE/TIME: 12/19/2016 6:50 pm REASON FOR STUDY: sepsis, immunosuppressed COMPARISON: Chest x-ray dated 12/19/2016 TECHNIQUE: CT scan of the chest performed using helical scanning technique with dynamic intravenous contrast injection. Images reviewed with lung, soft tissue and bone windows. Reconstructed coronal and sagittal MPR images reviewed. All images stored on PACS. All CT scanners at this facility use dose modulation, iterative reconstruction, and/or weight based d osing when appropriate to reduce radiation dose to as low as reasonably achievable (ALARA). [facility]: Dose Right [facility]: CareDose [facility]: Dose Right [facility]: Teradose 4D [facility]: [place] CONTRAST TYPE AND DOSE: contrast/concentration: Isovue 370.00 mg/ml; Total Contrast Delivered: 100.0 ml; Total Saline Delivered: 55.0 ml RENAL FUNCTION: Creatinine 0.92 RADIATION DOSE: . LIMITATIONS: None. FINDINGS: LUNGS AND PLEURA: No opacities, nodules, masses. No pneumothorax. No effusions. HILAR AND MEDIASTINAL STRUCTURES: No identified masses or abnormal nodes. HEART AND VASCULAR STRUCTURES: No aneurysm or dissection. No central pulmonary emboli. No pericardi al effusion. HARDWARE: None in the chest. UPPER ABDOMEN: See results under abdominal CT scan THYROID AND OTHER SOFT TISSUES: No masses. No adenopathy. BONES: No significant finding. OTHER: No other significant finding. IMPRESSION: No significant intrathoracic abnormalities were identified. Findings as noted above TECHNICAL DOCUMENTATION: JOB ID: [id number] Quality ID # [id number]: Final reports with documentation of one or more dose reduction techniques (e.g., Au tomated exposure control, adjustment of the mA and/or kV according to patient size, use of iterative reconstruction technique) 2010 [employer]- All Rights Reserved
--- NOTE | 2016-12-19 19:12 | RADIOLOGY REPORT (SQ) ---
EXAM DESCRIPTION: CT ABD/PELVIS WITH IV ONLY COMPLETED DATE/TIME: 12/19/2016 6:50 pm REASON FOR STUDY: sepsis, immunosuppressed COMPARISON: None. TECHNIQUE: CT scan of the abdomen and pelvis performed using helical scanning technique with dynamic intravenous contrast injection. No oral contrast. Images reviewed with lung, soft tissue, and bone windows. Reconstructed coronal and sagittal MPR images reviewed. Delayed images for evaluation of the urinary system also acquired. All images stored on PACS. All CT scanners at this facility use dose modulation, iterative reconstruction, and/or weight based d osing when appropriate to reduce radiation dose to as low as reasonably achievable (ALARA). [facility]: Dose Right [facility]: CareDose [facility]: Dose Right [facility]: Teradose 4D [facility]: [email or web address] CONTRAST TYPE AND DOSE: 100 Isovue 370- low osmolar. RENAL FUNCTION: Creatinine 0.92 RADIATION DOSE: Up-to-date CT equipment and radiation dose reduction techniques were employed. CTDIv ol: 6.4 - 8.8 mGy. DLP: 828 mGy-cm.. LIMITATIONS: None. FINDINGS: LOWER CHEST: No significant findings. No nodules or infiltrates. LIVER: Normal size. No masses. No dilated ducts. SPLEEN: Normal size. No focal lesions. PANCREAS: No masses. No significant calcifications. No adjacent inflammation or peripancreatic fluid collections. Pancreatic duct not dilated. GALLBLADDER: No identified stones by CT criteria. No inflammatory changes to suggest cholecystitis. ADRENAL GLANDS: No significant masses or asymmetry. RIGHT KIDNEY AND URETER: No solid masses. No significant calcifications. No hydronephrosis or hyd roureter. LEFT KIDNEY AND URETER: No solid masses. No significant calcifications. No hydronephrosis or hydr oureter. AORTA AND VESSELS: No aneurysm. No dissection. Renal arteries, SMA, celiac without stenosis. RETROPERITONEUM: No retroperitoneal adenopathy, hemorrhage or masses. BOWEL AND PERITONEAL CAVITY: No masses or inflammatory changes. No free fluid or peritoneal masses. APPENDIX: Not identified PELVIS: No mass. No free fluid. Urine distended bladder is identified. ABDOMINAL WALL: No masses. No hernias. BONES: No significant or acute findings. OTHER: No other significant finding. IMPRESSION: NO SIGNIFICANT OR ACUTE FINDING IN THE ABDOMEN OR PELVIS ON CT SCAN WITH IV CONTRAST. TECHNICAL DOCUMENTATION: JOB ID: [id number] Quality ID # [id number]: Final reports with documentation of one or more dose reduction techniques (e.g., Au tomated exposure control, adjustment of the mA and/or kV according to patient size, use of iterative reconstruction technique) 2010 [employer]- All Rights Reserved
--- NOTE | 2016-12-19 19:31 | RADIOLOGY REPORT (SQ) ---
EXAM DESCRIPTION: U/S ABDOMEN LTD W/DOPPLER COMPLETED DATE/TIME: 12/19/2016 7:19 pm REASON FOR STUDY: RUQ tenderness, fever COMPARISON: None. TECHNIQUE: Dynamic and static grayscale images acquired of the abdomen and recorded on PACS. Additio nal selected color Doppler and spectral images recorded. LIMITATIONS: Study is limited due to overlying bowel gas and the patient's body habitus. FINDINGS: PANCREAS: The pancreas was incompletely visualized due to overlying bowel gas. Visualized portion of the pancreatic head demonstrated no mass. LIVER: No masses. Echotexture normal. LIVER VASCULATURE: Normal blood flow is identified in the portal vein. GALLBLADDER: No stones. Normal wall thickness. No pericholecystic fluid. ULTRASOUND-DETECTED RAO'S SIGN: Negative. INTRAHEPATIC DUCTS AND COMMON DUCT: CBD and intrahepatic ducts normal caliber. No filling defects. INFERIOR VENA CAVA: Normal flow. AORTA: No aneurysm. RIGHT KIDNEY: Right kidney measures 9.4 cm in length. Normal echogenicity. No solid or suspicious ma sses. No hydronephrosis. No calcifications. PERITONEAL AND RIGHT PLEURAL SPACE: No ascites or effusions. OTHER: No other significant findings. IMPRESSION: Somewhat limited study as noted above. No significant intra-abdominal abnormalities wer e identified. Other findings as noted above TECHNICAL DOCUMENTATION: JOB ID: [id number] [employer]- All Rights Reserved
[2016-12-19] MEDS: NORMAL SALINE 1000 ML 1,000 ML IV PRN (20:17)
[2016-12-19 22:25] LABS: CREATINE KINASE MB 8.01 ng/mL (<4.55)
[2016-12-19 22:30] LABS: TROPONIN I < 0.012 ng/mL
[2016-12-20] MEDS: NORMAL SALINE 1000 ML 1,000 ML IV PRN ×2 (03:08→23:34)
[2016-12-20 04:32] LABS: ABSOLUTE BASOPHILS # (AUTO) 0.1 10^3/uL (0.0-0.2); ABSOLUTE LYMPHOCYTES (AUTO) 2.2 10^3/uL (0.5-4.7); ABSOLUTE MONOCYTES (AUTO) 1.1 10^3/uL (0.1-1.4); ABSOLUTE NEUT (AUTO) 15.9 10^3/uL (1.7-8.2); BASOPHILS % (AUTO) 0.4 % (0-2); EOSINOPHILS % (AUTO) 0.2 % (0-6); HEMATOCRIT 33.7 % (36.0-47.0); HGB HCT DIFFERENCE 0.5; LYMPHOCYTES % (AUTO) 11.2 % (13-45); MEAN CORPUSCULAR HGB CONC 33.9 g/dL (32.0-36.0); MEAN CORPUSCULAR VOLUME 89 fl (80-97); MONOCYTES % (AUTO) 5.8 % (3-13); RED BLOOD COUNT 3.79 10^6/uL (3.72-5.28); RED CELL DISTRIBUTION WIDTH 13.4 % (11.5-14.0); SEGMENTED NEUTROPHILS % (AUTO) 82.4 % (42-78); WHITE BLOOD COUNT 19.3 10^3/uL (4.0-10.5)
[2016-12-20 04:39] LABS: HEMOGLOBIN 11.4 g/dL (12.0-15.5)
[2016-12-20 04:45] LABS: ANION GAP 9 (5-19); BLOOD UREA NITROGEN 13 mg/dL (7-20); CALCIUM 7.4 mg/dL (8.4-10.2); CARBON DIOXIDE 21 mmol/L (22-30); CHLORIDE 109 mmol/L (98-107); CREATINE KINASE 1540 U/L (30-135); CREATININE RESULT 0.81 mg/dL (0.52-1.25); GLUCOSE 97 mg/dL (75-110); MAGNESIUM 2.2 mg/dL (1.6-2.3); POTASSIUM 4.2 mmol/L (3.6-5.0); SODIUM 138.5 mmol/L (137-145)
[2016-12-20 04:52] LABS: CREATINE KINASE MB 3.62 ng/mL (<4.55)
[2016-12-20 04:54] LABS: TROPONIN I < 0.012 ng/mL
[2016-12-20] MEDS: ENOXAPARIN SODIUM INJ 40 MG/0.4 ML DISP.SYRIN SUBCUT SCH (10:00)
[2016-12-20 10:30] LABS: CREATINE KINASE MB 3.01 ng/mL (<4.55)
[2016-12-20 10:32] LABS: TROPONIN I < 0.012 ng/mL
--- NOTE | 2016-12-20 10:52 | RADIOLOGY REPORT (SQ) ---
EXAM DESCRIPTION: SHOULDER RIGHT 2 OR MORE VIEWS COMPLETED DATE/TIME: 12/20/2016 10:44 am REASON FOR STUDY: fall right shoulder pain COMPARISON: None. NUMBER OF VIEWS: Three views. TECHNIQUE: Internal rotation, external rotation, and Y view images acquired of the right shoulder. LIMITATIONS: None. FINDINGS: MINERALIZATION: Normal. BONES: No acute fracture or dislocation. No worrisome bone lesions. JOINTS: The humeral head rides high in the glenoid. VISUALIZED LUNGS AND RIBS: No pneumothorax. No rib fracture. SOFT TISSUES: No radiopaque foreign body. OTHER: No other significant finding. IMPRESSION: 1. There is no acute abnormality. 2. The high-riding humeral head may suggest rotator cuff disease. TECHNICAL DOCUMENTATION: JOB ID: [id number] [employer])- All Rights Reserved
--- NOTE | 2016-12-20 13:07 | PDOC PROGRESS REPORT ---
Subjective Progress Note for:: 12/20/16 Subjective:: Patient feels subjectively much better today. She complains of right shoulder pain and her daughter states that patient may have fallen at home prior to presentation. Physical Exam Vital Signs: Temp Pulse Resp BP Pulse Ox 97.6 F 60 16 105/40 L 100 12/20/16 11:53 12/20/16 11:53 12/20/16 11:53 12/20/16 11:53 12/20/16 11:53 Intake & Output 12/19/16 12/20/16 12/21/16 06:59 06:59 06:59 Intake Total 1560 Balance 1560 Weight 58.1 kg GENERAL: No acute distress HEENT: Conjunctiva clear, nonicteric, moist mucous membranes, no JVD, midline trachea RESPIRATORY: Clear to auscultation bilaterally, no wheezes, no rhonchi CARDIAC: Regular rate and rhythm, no murmurs/gallops/rubs ABDOMEN: Soft, nondistended, nontender, positive bowel sounds, no rebound, no guarding EXTREMETIES: No edema, cyanosis, clubbing NEUROLOGIC: Alert, oriented to person/place/time, CN's grossly intact, no focal deficits SKIN: No rash, wounds PSYCH: Normal mood, normal affect Results Laboratory Results: 12/20/16 03:49 12/20/16 03:49 12/20/16 12/20/16 03:49 03:49 WBC 19.3 H RBC 3.79 Hgb 11.4 L Hct 33.7 L MCV 89 MCH 30.0 MCHC 33.9 RDW 13.4 Plt Count 164 Seg Neutrophils % 82.4 H Lymphocytes % 11.2 L Monocytes % 5.8 Eosinophils % 0.2 Basophils % 0.4 Absolute Neutrophils 15.9 H Absolute Lymphocytes 2.2 Absolute Monocytes 1.1 Absolute Eosinophils 0.0 Absolute Basophils 0.1 Sodium 138.5 Potassium 4.2 Chloride 109 H Carbon Dioxide 21 L Anion Gap 9 BUN 13 Creatinine 0.81 Est GFR ( Amer) > 60 Est GFR (Non-Af Amer) > 60 Glucose 97 Calcium 7.4 L Magnesium 2.2 12/19/16 12/19/16 12/20/16 21:50 21:50 03:49 Creatine Kinase 2534 H 1540 H CK-MB (CK-2) 8.01 H Troponin I < 0.012 07/28/17 07/28/17 07/28/17 03:49 09:41 09:41 Creatine Kinase 1480 H CK-MB (CK-2) 3.62 3.01 Troponin I < 0.012 < 0.012 Impressions: Abdomen/Pelvis CT 12/19/16 00:00 IMPRESSION: NO SIGNIFICANT OR ACUTE FINDING IN THE ABDOMEN OR PELVIS ON CT SCAN WITH IV CONTRAST. Chest CT 12/19/16 00:00 IMPRESSION: No significant intrathoracic abnormalities were identified. Findings as noted above Chest X-Ray 12/19/16 13:51 IMPRESSION: NO ACUTE RADIOGRAPHIC FINDING IN THE CHEST. Abdomen Ultrasound 12/19/16 17:30 IMPRESSION: Somewhat limited study as noted above. No significant intra- abdominal abnormalities were identified. Other findings as noted above Shoulder X-Ray 12/20/16 00:00 IMPRESSION: 1. There is no acute abnormality. 2. The high-riding humeral head may suggest rotator cuff disease. Assessment & Plan - Diagnosis (1) Sepsis Qualifiers: Sepsis type: sepsis due to unspecified organism Qualified Code(s): A41.9 - Sepsis, unspecified organism Is this a current diagnosis for this admission?: YesPlan: Etiology unknown at this time. I am concerned that patient is on Humira and methotrexate. Continue IV Rocephin initiated in the emergency department. Blood culture pending. Urine culture with no growth. CT scan chest/abdomen/ pelvis with no acute process. Right upper quadrant ultrasound negative. Patient was treated for recent urinary tract infection on 12/09/2016 with urine culture growing group B streptococcus at that time. If cultures remain negative at 48 hours and patient is symptomatically improved I will transition to empiric oral antibiotic course discharged home. (2) Abdominal pain Is this a current diagnosis for this admission?: YesPlan: Resolved. Imaging negative. (3) Rhabdomyolysis Is this a current diagnosis for this admission?: YesPlan: IV fluids. Follow-up CPK levels. (4) Rheumatoid arthritis Is this a current diagnosis for this admission?: YesPlan: Hold Humira and methotrexate for now until infectious disease issues addressed. Patient is followed by Dr. Moustapha Knapp of rheumatology. (5) Dementia Is this a current diagnosis for this admission?: YesPlan: Patient normally resides at home alone and daughter lives next door. (6) Right shoulder pain Qualifiers: Chronicity: acute Qualified Code(s): M25.511 - Pain in right shoulder Is this a current diagnosis for this admission?: YesPlan: X-ray with no acute process. - Time Time Spent with patient: 25-34 minutes
[2016-12-20] MEDS ORDERED: CEFTRIAXONE 1 GM/D5W RTU 50 ML IV SCH (18:00)
[2016-12-21 05:51] LABS: ABSOLUTE BASOPHILS # (AUTO) 0.1 10^3/uL (0.0-0.2); ABSOLUTE EOSINOPHILS # (AUTO) 0.3 10^3/uL (0.0-0.6); ABSOLUTE LYMPHOCYTES (AUTO) 2.7 10^3/uL (0.5-4.7); ABSOLUTE NEUT (AUTO) 4.5 10^3/uL (1.7-8.2); BASOPHILS % (AUTO) 0.7 % (0-2); HEMATOCRIT 32.8 % (36.0-47.0); HEMOGLOBIN 11.1 g/dL (12.0-15.5); HGB HCT DIFFERENCE 0.5; LYMPHOCYTES % (AUTO) 31.4 % (13-45); MEAN CORPUSCULAR HEMOGLOBIN 29.7 pg (27.0-33.4); MEAN CORPUSCULAR HGB CONC 33.9 g/dL (32.0-36.0); MEAN CORPUSCULAR VOLUME 88 fl (80-97); MONOCYTES % (AUTO) 12.2 % (3-13); RED BLOOD COUNT 3.75 10^6/uL (3.72-5.28); RED CELL DISTRIBUTION WIDTH 13.6 % (11.5-14.0); SEGMENTED NEUTROPHILS % (AUTO) 52.7 % (42-78); WHITE BLOOD COUNT 8.6 10^3/uL (4.0-10.5)
[2016-12-21 06:04] LABS: ANION GAP 7 (5-19); BLOOD UREA NITROGEN 9 mg/dL (7-20); CALCIUM 7.5 mg/dL (8.4-10.2); CARBON DIOXIDE 21 mmol/L (22-30); CHLORIDE 109 mmol/L (98-107); CREATINE KINASE 948 U/L (30-135); CREATININE RESULT 0.72 mg/dL (0.52-1.25); GLUCOSE 94 mg/dL (75-110); SODIUM 137.2 mmol/L (137-145)
[2016-12-21] MEDS: ENOXAPARIN SODIUM INJ 40 MG/0.4 ML DISP.SYRIN SUBCUT SCH (10:09)
[2016-12-21] MEDS ORDERED: [UNRECOGNIZED DRUG - OTHER] PO PRN (10:10)
[2016-12-21] MEDS ORDERED: ACETAMINOPHEN PO PRN (10:10)
[2016-12-21] MEDS ORDERED: TRAMADOL HCL PO PRN (10:10)
--- NOTE | 2016-12-21 10:10 | PDOC PROGRESS REPORT ---
Subjective Progress Note for:: 12/21/16 Subjective:: Patient has no complaints. Patient's daughter is concerned about patient having worsening memory impairments and living alone. Daughter has requested the patient be sent to rehab until her living situation can be figured out. Nursing however reports the patient is ambulating without any difficulty. With regard to patient's memory she is alert and oriented to person, place, year. She does not know who the president of [employer] is and does not believe me when I tell her it is Loi Galindo. Physical Exam Vital Signs: Temp Pulse Resp BP Pulse Ox 98.2 F 87 22 H 132/59 H 98 12/21/16 03:45 12/21/16 07:00 12/21/16 03:45 12/21/16 03:45 12/21/16 03:45 Intake & Output 12/20/16 12/21/16 12/22/16 06:59 06:59 06:59 Intake Total 1560 3685 Balance 1560 3685 Weight 58.1 kg 60.1 kg GENERAL: No acute distress HEENT: Conjunctiva clear, nonicteric, moist mucous membranes, no JVD, midline trachea RESPIRATORY: Clear to auscultation bilaterally, no wheezes, no rhonchi CARDIAC: Regular rate and rhythm, no murmurs/gallops/rubs ABDOMEN: Soft, nondistended, nontender, positive bowel sounds, no rebound, no guarding EXTREMETIES: No edema, cyanosis, clubbing NEUROLOGIC: Alert, oriented to person/place/year, CN's grossly intact, no focal deficits SKIN: No rash, wounds PSYCH: Normal mood, normal affect Results Laboratory Results: 12/21/16 05:21 12/21/16 05:21 12/21/16 12/21/16 05:21 05:21 WBC 8.6 RBC 3.75 Hgb 11.1 L Hct 32.8 L MCV 88 MCH 29.7 MCHC 33.9 RDW 13.6 Plt Count 152 Seg Neutrophils % 52.7 Lymphocytes % 31.4 Monocytes % 12.2 Eosinophils % 3.0 Basophils % 0.7 Absolute Neutrophils 4.5 Absolute Lymphocytes 2.7 Absolute Monocytes 1.0 Absolute Eosinophils 0.3 Absolute Basophils 0.1 Sodium 137.2 Potassium 4.0 Chloride 109 H Carbon Dioxide 21 L Anion Gap 7 BUN 9 Creatinine 0.72 Est GFR ( Amer) > 60 Est GFR (Non-Af Amer) > 60 Glucose 94 Calcium 7.5 L 12/19/16 12/19/16 12/20/16 21:50 21:50 03:49 Creatine Kinase 2534 H 1540 H CK-MB (CK-2) 8.01 H Troponin I < 0.012 12/20/16 12/20/16 12/20/16 03:49 09:41 09:41 Creatine Kinase 1480 H CK-MB (CK-2) 3.62 3.01 Troponin I < 0.012 < 0.012 12/21/16 05:21 Creatine Kinase 948 H CK-MB (CK-2) Troponin I Impressions: Abdomen/Pelvis CT 12/19/16 00:00 IMPRESSION: NO SIGNIFICANT OR ACUTE FINDING IN THE ABDOMEN OR PELVIS ON CT SCAN WITH IV CONTRAST. Chest CT 12/19/16 00:00 IMPRESSION: No significant intrathoracic abnormalities were identified. Findings as noted above Chest X-Ray 12/19/16 13:51 IMPRESSION: NO ACUTE RADIOGRAPHIC FINDING IN THE CHEST. Abdomen Ultrasound 12/19/16 17:30 IMPRESSION: Somewhat limited study as noted above. No significant intra- abdominal abnormalities were identified. Other findings as noted above Shoulder X-Ray 12/20/16 00:00 IMPRESSION: 1. There is no acute abnormality. 2. The high-riding humeral head may suggest rotator cuff disease. Assessment & Plan - Diagnosis (1) Sepsis Qualifiers: Sepsis type: sepsis due to unspecified organism Qualified Code(s): A41.9 - Sepsis, unspecified organism Is this a current diagnosis for this admission?: YesPlan: Etiology unknown at this time. I am concerned that patient is on Humira and methotrexate. Blood culture negative. Urine culture with no growth. CT scan chest/abdomen/pelvis with no acute process. Right upper quadrant ultrasound negative. Patient was treated for recent urinary tract infection on 12/09/2016 with urine culture growing group B streptococcus at that time. Discontinue IV Rocephin. Start oral cefpodoxime empirically until 12/29/2016. If cultures remain negative at 48 hours and patient is symptomatically improved I will transition to empiric oral antibiotic course discharged home. (2) Abdominal pain Is this a current diagnosis for this admission?: YesPlan: Resolved. Imaging negative. (3) Rhabdomyolysis Is this a current diagnosis for this admission?: YesPlan: Resolving. Discontinue IV fluids. (4) Rheumatoid arthritis Is this a current diagnosis for this admission?: YesPlan: Hold Humira and methotrexate for now until infectious disease issues addressed. Patient is followed by Dr. Moustapha Knapp of rheumatology. (5) Dementia Is this a current diagnosis for this admission?: YesPlan: Patient normally resides at home alone and daughter lives next door. Her daughter is requesting that she go to rehab prior to returning home. I am not sure that she cannot qualify from a rehabilitative standpoint as she has ambulated without difficulty. I will have physical therapy evaluate. If patient does not qualify then family will have to figure out 16/12 supervision. (6) Right shoulder pain Qualifiers: Chronicity: acute Qualified Code(s): M25.511 - Pain in right shoulder Is this a current diagnosis for this admission?: YesPlan: X-ray negative. - Time Time Spent with patient: 25-34 minutes
[2016-12-21] MEDS ORDERED: ATORVASTATIN CALCIUM 20 MG TABLET PO ONE (11:15)
[2016-12-21] MEDS ORDERED: DONEPEZIL HCL 5 MG TABLET PO ONE (11:15)
[2016-12-21] MEDS ORDERED: LANSOPRAZOLE 30 MG TAB.RAP.DR PO ONE (11:30)
[2016-12-21] MEDS ORDERED: CEFPODOXIME 200 MG TABLET PO ONE (12:00)
[2016-12-21] MEDS: LEVOFLOXACIN 500 MG TABLET PO SCH (13:37)
[2016-12-21] MEDS: MONTELUKAST SODIUM 10 MG TABLET PO SCH (21:37)
[2016-12-21] MEDS ORDERED: CEFPODOXIME 200 MG TABLET PO SCH (22:00)
[2016-12-22 06:13] LABS: ABSOLUTE BASOPHILS # (AUTO) 0.1 10^3/uL (0.0-0.2); ABSOLUTE EOSINOPHILS # (AUTO) 0.2 10^3/uL (0.0-0.6); ABSOLUTE LYMPHOCYTES (AUTO) 3.1 10^3/uL (0.5-4.7); ABSOLUTE MONOCYTES (AUTO) 0.8 10^3/uL (0.1-1.4); ABSOLUTE NEUT (AUTO) 1.9 10^3/uL (1.7-8.2); BASOPHILS % (AUTO) 0.9 % (0-2); EOSINOPHILS % (AUTO) 3.5 % (0-6); HEMATOCRIT 35.2 % (36.0-47.0); HEMOGLOBIN 11.8 g/dL (12.0-15.5); HGB HCT DIFFERENCE 0.2; LYMPHOCYTES % (AUTO) 50.9 % (13-45); MEAN CORPUSCULAR HEMOGLOBIN 29.4 pg (27.0-33.4); MEAN CORPUSCULAR HGB CONC 33.5 g/dL (32.0-36.0); MEAN CORPUSCULAR VOLUME 88 fl (80-97); MONOCYTES % (AUTO) 13.2 % (3-13); RED BLOOD COUNT 4.01 10^6/uL (3.72-5.28); RED CELL DISTRIBUTION WIDTH 13.5 % (11.5-14.0); SEGMENTED NEUTROPHILS % (AUTO) 31.5 % (42-78)
[2016-12-22 06:33] LABS: ANION GAP 10 (5-19); BLOOD UREA NITROGEN 8 mg/dL (7-20); CALCIUM 8.3 mg/dL (8.4-10.2); CARBON DIOXIDE 23 mmol/L (22-30); CHLORIDE 107 mmol/L (98-107); CREATININE RESULT 0.72 mg/dL (0.52-1.25); GLUCOSE 94 mg/dL (75-110); POTASSIUM 4.3 mmol/L (3.6-5.0); SODIUM 139.5 mmol/L (137-145)
[2016-12-22] MEDS ORDERED: (PENDING PHARMACY ID) (Azelastine Hcl [Azelastine Hcl] 2 SPRAY) NASL SCH (10:00)
[2016-12-22] MEDS ORDERED: ATORVASTATIN CALCIUM 20 MG TABLET PO SCH (10:00)
[2016-12-22] MEDS ORDERED: ERGOCALCIFEROL (VITAMIN D2) 50000 UNIT (1.25 MG) CAPSULE PO SCH (10:00)
[2016-12-22] MEDS: ENOXAPARIN SODIUM INJ 40 MG/0.4 ML DISP.SYRIN SUBCUT SCH (10:02)
[2016-12-22] MEDS: FOLIC ACID 1 MG TABLET PO SCH (10:03)
[2016-12-22] MEDS: LANSOPRAZOLE 30 MG TAB.RAP.DR PO SCH (10:03)
[2016-12-22] MEDS: DONEPEZIL HCL 5 MG TABLET PO SCH (10:04)
--- NOTE | 2016-12-22 12:16 | PDOC PROGRESS REPORT ---
Subjective Progress Note for:: 12/22/16 Subjective:: Patient has no complaints. Nursing reports that patient gets out of bed unassisted frequently. Patient denies fever, chills, headache, new focal weakness, chest pain, shortness of breath, abdominal pain, nausea, vomiting, diarrhea, constipation. Physical Exam Vital Signs: Temp Pulse Resp BP Pulse Ox 98.4 F 63 16 151/70 H 99 12/22/16 07:47 12/22/16 07:47 12/22/16 07:47 12/22/16 07:47 12/22/16 07:47 Intake & Output 12/21/16 12/22/16 12/23/16 06:59 06:59 06:59 Intake Total 3685 837 Balance 3685 837 Weight 60.1 kg 56.2 kg Results Laboratory Results: 12/22/16 05:41 12/22/16 05:41 12/22/16 12/22/16 05:41 05:41 WBC 6.0 RBC 4.01 Hgb 11.8 L Hct 35.2 L MCV 88 MCH 29.4 MCHC 33.5 RDW 13.5 Plt Count 175 Seg Neutrophils % 31.5 L Lymphocytes % 50.9 H Monocytes % 13.2 H Eosinophils % 3.5 Basophils % 0.9 Absolute Neutrophils 1.9 Absolute Lymphocytes 3.1 Absolute Monocytes 0.8 Absolute Eosinophils 0.2 Absolute Basophils 0.1 Sodium 139.5 Potassium 4.3 Chloride 107 Carbon Dioxide 23 Anion Gap 10 BUN 8 Creatinine 0.72 Est GFR ( Amer) > 60 Est GFR (Non-Af Amer) > 60 Glucose 94 Calcium 8.3 L 12/19/16 12/19/16 12/20/16 21:50 21:50 03:49 Creatine Kinase 2534 H 1540 H CK-MB (CK-2) 8.01 H Troponin I < 0.012 12/20/16 12/20/16 12/20/16 03:49 09:41 09:41 Creatine Kinase 1480 H CK-MB (CK-2) 3.62 3.01 Troponin I < 0.012 < 0.012 12/21/16 05:21 Creatine Kinase 948 H CK-MB (CK-2) Troponin I Impressions: Abdomen/Pelvis CT 12/19/16 00:00 IMPRESSION: NO SIGNIFICANT OR ACUTE FINDING IN THE ABDOMEN OR PELVIS ON CT SCAN WITH IV CONTRAST. Chest CT 12/19/16 00:00 IMPRESSION: No significant intrathoracic abnormalities were identified. Findings as noted above Chest X-Ray 12/19/16 13:51 IMPRESSION: NO ACUTE RADIOGRAPHIC FINDING IN THE CHEST. Abdomen Ultrasound 12/19/16 17:30 IMPRESSION: Somewhat limited study as noted above. No significant intra- abdominal abnormalities were identified. Other findings as noted above Shoulder X-Ray 12/20/16 00:00 IMPRESSION: 1. There is no acute abnormality. 2. The high-riding humeral head may suggest rotator cuff disease. Assessment & Plan - Diagnosis (1) Sepsis Qualifiers: Sepsis type: sepsis due to unspecified organism Qualified Code(s): A41.9 - Sepsis, unspecified organism Is this a current diagnosis for this admission?: YesPlan: Etiology unknown at this time. I am concerned that patient is on Humira and methotrexate. Blood culture negative. Urine culture with no growth. CT scan chest/abdomen/pelvis with no acute process. Right upper quadrant ultrasound negative. Patient was treated for recent urinary tract infection on 12/09/2016 with urine culture growing group B streptococcus at that time. Continue oral Levaquin empirically until 12/29/2016. (2) Dementia Is this a current diagnosis for this admission?: YesPlan: Patient normally resides at home alone and daughter lives next door. Her daughter is requesting that she go to rehab prior to returning home. I am not sure that she cannot qualify from a rehabilitative standpoint as she has ambulated without difficulty. I will have physical therapy evaluate. Patient's daughter states that family is not able to provide 24/7 supervision. I will have clinical case manager work with family regarding disposition. Patient may need assisted living. (3) Rhabdomyolysis Is this a current diagnosis for this admission?: YesPlan: Resolving. Repeat basic panel and CPK level in the morning. (4) Rheumatoid arthritis Is this a current diagnosis for this admission?: YesPlan: Holding Humira and methotrexate for now until infectious disease issues addressed. Patient is followed by Dr. Moustapha Knapp of rheumatology. - Time Time Spent with patient: 25-34 minutes
[2016-12-22] MEDS: LEVOFLOXACIN 500 MG TABLET PO SCH (14:20)
[2016-12-22] MEDS: MONTELUKAST SODIUM 10 MG TABLET PO SCH (21:47)
[2016-12-23 05:20] LABS: ABSOLUTE BASOPHILS # (AUTO) 0.1 10^3/uL (0.0-0.2); ABSOLUTE EOSINOPHILS # (AUTO) 0.1 10^3/uL (0.0-0.6); ABSOLUTE LYMPHOCYTES (AUTO) 3.5 10^3/uL (0.5-4.7); ABSOLUTE MONOCYTES (AUTO) 0.7 10^3/uL (0.1-1.4); BASOPHILS % (AUTO) 0.8 % (0-2); EOSINOPHILS % (AUTO) 2.3 % (0-6); HEMATOCRIT 37.1 % (36.0-47.0); HGB HCT DIFFERENCE 1.9; LYMPHOCYTES % (AUTO) 55.1 % (13-45); MEAN CORPUSCULAR HEMOGLOBIN 30.3 pg (27.0-33.4); MEAN CORPUSCULAR HGB CONC 34.9 g/dL (32.0-36.0); MEAN CORPUSCULAR VOLUME 87 fl (80-97); MONOCYTES % (AUTO) 11.4 % (3-13); RED BLOOD COUNT 4.28 10^6/uL (3.72-5.28); SEGMENTED NEUTROPHILS % (AUTO) 30.4 % (42-78); WHITE BLOOD COUNT 6.4 10^3/uL (4.0-10.5)
[2016-12-23 05:47] LABS: ANION GAP 10 (5-19); BLOOD UREA NITROGEN 7 mg/dL (7-20); CALCIUM 8.6 mg/dL (8.4-10.2); CARBON DIOXIDE 25 mmol/L (22-30); CHLORIDE 105 mmol/L (98-107); CREATINE KINASE 234 U/L (30-135); GLUCOSE 93 mg/dL (75-110); POTASSIUM 4.4 mmol/L (3.6-5.0); SODIUM 139.9 mmol/L (137-145)
[2016-12-23] MEDS: FOLIC ACID 1 MG TABLET PO SCH (12:08)
[2016-12-23] MEDS: DONEPEZIL HCL 5 MG TABLET PO SCH (12:08)
[2016-12-23] MEDS: LANSOPRAZOLE 30 MG TAB.RAP.DR PO SCH (12:08)
[2016-12-23] MEDS ORDERED: ONDANSETRON HCL INJ/PF 4 MG/2 ML SDV IV PRN (13:22)
--- NOTE | 2016-12-23 14:11 | RADIOLOGY REPORT (SQ) ---
EXAM DESCRIPTION: CT ABD/PELVIS WITH IV ORAL COMPLETED DATE/TIME: 12/23/2016 1:46 pm REASON FOR STUDY: abd pain COMPARISON: 12/08/2016. TECHNIQUE: CT scan of the abdomen and pelvis performed with intravenous and oral contrast using jim francis scanning technique with dynamic intravenous contrast injection. Images reviewed with lung, soft t issue, and bone windows. Reconstructed coronal and sagittal MPR images reviewed. Delayed images for e valuation of the urinary system also acquired. All images stored on PACS. All CT scanners at this facility use dose modulation, iterative reconstruction, and/or weight based d osing when appropriate to reduce radiation dose to as low as reasonably achievable (ALARA). [facility]: Dose Right [facility]: CareDose [facility]: Dose Right [facility]: Teradose 4D [facility]: Xconomy CONTRAST TYPE AND DOSE: contrast/concentration: Isovue 370.00 mg/ml; Total Contrast Delivered: 61.0 ml; Total Saline Delivered: 65.0 ml RENAL FUNCTION: BUN 7 creatinine 0.7. RADIATION DOSE: Up-to-date CT equipment and radiation dose reduction techniques were employed. CTDIv ol: 4.0 - 4.8 mGy. DLP: 408 mGy-cm.. LIMITATIONS: None. FINDINGS: LOWER CHEST: No significant findings. No nodules or infiltrates. LIVER: Normal size. No masses. No dilated ducts. SPLEEN: Normal size. No focal lesions. PANCREAS: No masses. No significant calcifications. No adjacent inflammation or peripancreatic fluid collections. Pancreatic duct not dilated. GALLBLADDER: No identified stones by CT criteria. No inflammatory changes to suggest cholecystitis. ADRENAL GLANDS: No significant masses or asymmetry. RIGHT KIDNEY AND URETER: No solid masses. No significant calcification. No hydronephrosis or hydroure ter. LEFT KIDNEY AND URETER: No solid masses. No significant calcification. No hydronephrosis or hydrouret er. AORTA AND VESSELS: No aneurysm. No dissection. Renal arteries, SMA, celiac without stenosis. RETROPERITONEUM: No retroperitoneal adenopathy, hemorrhage or masses. BOWEL AND PERITONEAL CAVITY: No obstruction. No visualized masses. No free fluid. Diverticuli in the descending and sigmoid colon. No inflammatory changes or thickening of bowel wall. APPENDIX: Surgically absent. PELVIS: No significant masses. Normal bladder. No free fluid. ABDOMINAL WALL: No masses. No hernias. BONES: No significant or acute findings. OTHER: No other significant finding. IMPRESSION: DIVERTICULOSIS. NO CT FINDINGS OF ACUTE DIVERTICULITIS. NO OTHER SIGNIFICANT OR ACUTE FINDINGS IN THE ABDOMEN OR PELVIS. TECHNICAL DOCUMENTATION: JOB ID: [id number] Quality ID # [id number]: Final reports with documentation of one or more dose reduction techniques (e.g., Au tomated exposure control, adjustment of the mA and/or kV according to patient size, use of iterative reconstruction technique) 2010 [employer]- All Rights Reserved
--- NOTE | 2016-12-23 14:40 | PDOC DISCHARGE SUMMARY ---
General - Admit/Disc Date/PCP Admission Date/Primary Care Provider: 12/19/16 17:31 JULIANN KIDD MD Discharge Date: 12/23/16 - Discharge Diagnosis (1) Sepsis Is this a current diagnosis for this admission?: Yes (2) Dementia Is this a current diagnosis for this admission?: Yes (3) Rhabdomyolysis Is this a current diagnosis for this admission?: Yes (4) Rheumatoid arthritis Is this a current diagnosis for this admission?: Yes - Additional Information Resuscitation Status: Full Code Discharge Diet: Regular Discharge Activity: Activity As Tolerated Home Medications: Azelastine HCl 2 spray NASL DAILY 12/20/16 Donepezil HCl [Aricept 5 mg Tablet] 5 mg PO DAILY 12/20/16 Ergocalciferol (Vitamin D2) [Vitamin D2] 50,000 unit PO KRAMER@1000 12/20/16 Folic Acid [Folvite 1 mg Tablet] 1 mg PO DAILY 12/20/16 Montelukast Sodium [Singulair 10 mg Tablet] 10 mg PO DAILY 12/20/16 Omeprazole 40 mg PO DAILY 12/20/16 Tramadol HCl/Acetaminophen [Ultracet 37.5 mg/325 mg Tablet] 2 tab PO Q8HP PRN Levofloxacin [Levaquin 500 mg Tablet] 500 mg PO DAILY@1400 #5 tablet 12/23/16 History of Present Illness Patient complains of: fever History of Present Illness: ZACHERY IVEY is a 81 year old female with past medical history of rheumatoid arthritis on Humira and methotrexate presents with 10 days fever, weakness. She was evaluated in the emergency department on 12/09/2016 for similar symptoms in addition to nausea, vomiting, abdominal pain. During that emergency department evaluation she had a CT of the abdomen and pelvis was negative. Blood cultures at that time were no growth. Urine culture grew group B streptococcus. Patient was diagnosed with urinary tract infection and discharged home on Keflex. She feels like she has gotten generally worse since then. She is accompanied by her daughter who states that she has not been eating very well and has had difficulty ambulating secondary to weakness. Patient also complains of diffuse muscle aching. She denies headache, neck stiffness, photophobia, chest pain, shortness of breath, dysuria, diarrhea. Hospital Course Hospital Course: Patient on Humira/MTX with fever and leukocytosis. Placed on empiric IV Abx. Cultures negative. CT chest/abd/pelvis negative. Resolved with Abx and transitioned to oral Levaquin. Remains stable on oral Abx. D/c on oral Levaquin. Advised to hold Humira/MTX until f/u with PCP. Physical Exam Vital Signs: Temp Pulse Resp BP Pulse Ox 97.6 F 65 16 145/67 H 100 12/23/16 11:38 12/23/16 11:38 12/23/16 11:38 12/23/16 11:38 12/23/16 11:38 Intake & Output 12/22/16 12/23/16 12/24/16 06:59 06:59 06:59 Intake Total 837 925 Output Total 800 Balance 837 125 Weight 56.2 kg 55.9 kg General appearance: PRESENT: no acute distress, well-developed, well-nourished Head exam: PRESENT: atraumatic, normocephalic Eye exam: PRESENT: conjunctiva pink, EOMI, PERRLA. ABSENT: scleral icterus Ear exam: PRESENT: normal external ear exam Mouth exam: PRESENT: moist, tongue midline Neck exam: ABSENT: carotid bruit, JVD, lymphadenopathy, thyromegaly Respiratory exam: PRESENT: clear to auscultation marvin. ABSENT: rales, rhonchi, wheezes Cardiovascular exam: PRESENT: RRR. ABSENT: diastolic murmur, rubs, systolic murmur Pulses: PRESENT: normal dorsalis pedis pul Vascular exam: PRESENT: normal capillary refill GI/Abdominal exam: PRESENT: normal bowel sounds, soft. ABSENT: distended, guarding, mass, organolmegaly, rebound, tenderness Rectal exam: PRESENT: deferred Extremities exam: PRESENT: full ROM. ABSENT: calf tenderness, clubbing, pedal edema Neurological exam: PRESENT: alert, awake, oriented to person, oriented to place , oriented to time, oriented to situation, CN II-XII grossly intact. ABSENT: motor sensory deficit Psychiatric exam: PRESENT: appropriate affect, normal mood. ABSENT: homicidal ideation, suicidal ideation Skin exam: PRESENT: dry, intact, warm. ABSENT: cyanosis, rash Results Laboratory Results: 12/23/16 04:07 12/23/16 04:07 12/23/16 12/23/16 04:07 04:07 WBC 6.4 RBC 4.28 Hgb 13.0 Hct 37.1 MCV 87 MCH 30.3 MCHC 34.9 RDW 13.0 Plt Count 207 Seg Neutrophils % 30.4 L Lymphocytes % 55.1 H Monocytes % 11.4 Eosinophils % 2.3 Basophils % 0.8 Absolute Neutrophils 2.0 Absolute Lymphocytes 3.5 Absolute Monocytes 0.7 Absolute Eosinophils 0.1 Absolute Basophils 0.1 Sodium 139.9 Potassium 4.4 Chloride 105 Carbon Dioxide 25 Anion Gap 10 BUN 7 Creatinine 0.70 Est GFR ( Amer) > 60 Est GFR (Non-Af Amer) > 60 Glucose 93 Calcium 8.6 12/19/16 12/19/16 12/20/16 21:50 21:50 03:49 Creatine Kinase 2534 H 1540 H CK-MB (CK-2) 8.01 H Troponin I < 0.012 12/20/16 12/20/16 12/20/16 03:49 09:41 09:41 Creatine Kinase 1480 H CK-MB (CK-2) 3.62 3.01 Troponin I < 0.012 < 0.012 12/21/16 12/23/16 05:21 04:07 Creatine Kinase 948 H 234 H CK-MB (CK-2) Troponin I 12/19/16 21:50 Blood Culture - Preliminary Blood NO GROWTH AFTER 72 HOURS 12/19/16 15:13 Urine Culture - Final Catheterized Urine NO GROWTH 2 DAYS 12/19/16 14:38 Blood Culture - Preliminary Blood NO GROWTH AFTER 72 HOURS Impressions: Chest CT 12/19/16 00:00 IMPRESSION: No significant intrathoracic abnormalities were identified. Findings as noted above Chest X-Ray 12/19/16 13:51 IMPRESSION: NO ACUTE RADIOGRAPHIC FINDING IN THE CHEST. Abdomen Ultrasound 12/19/16 17:30 IMPRESSION: Somewhat limited study as noted above. No significant intra- abdominal abnormalities were identified. Other findings as noted above Shoulder X-Ray 12/20/16 00:00 IMPRESSION: 1. There is no acute abnormality. 2. The high-riding humeral head may suggest rotator cuff disease. Abdomen/Pelvis CT 12/23/16 00:00 IMPRESSION: DIVERTICULOSIS. NO CT FINDINGS OF ACUTE DIVERTICULITIS. NO OTHER SIGNIFICANT OR ACUTE FINDINGS IN THE ABDOMEN OR PELVIS. Qualifiers PATEINT BEING DISCHARGED WITH ANY OF THE FOLLOWING DIAGNOSIS?: No Plan Time Spent: Less than 30 Minutes
[2016-12-23 15:09] VITALS: BP 108/58
[2016-12-24] MEDS ORDERED: LANSOPRAZOLE 30 MG TAB.RAP.DR PO SCH (06:00)
--- NOTE | 2017-01-02 14:54 | Physician Advisory Note ---
Physician Advisor ProgressNote .: [facility], I have reviewed the medical record for this patient. Physician Advisor Statement: Asked to review chart r.e. coding sepsis dx. Elderly pt age 81 w/RA, on meds that decrease immune function (ability to fight off infection), came in w/fever 102, RR26, WBC 27.2, w/BP that quickly dropped from 130s/60s to 90s/50s (as low as 89/48), with initial HR as high as 88 (later , when she was more stable, BP was mostly 130s systolic, & HR mostly 50s-60s). She did not have a h/o HTN & was on no BP meds. Any practicing physician would be concerned for serious infection & possible sepsis with just this combination of findings. Both ED dr and attending both documented their concerns for sepsis. But this was not all the evidence that pointed towards sepsis. Her initial total GCS was 14 out of 15, due to confusion w/verbal responses. She had O2 sat as low as 91% on RA early on, giving a P/F ratio of 286, with no prior lung disease hx to make this expected/chronic. - After the first day, her O2 sats were consistently 97-100% on RA, indicating this, not low 90s, is her baseline. Her MAP was in the 60s several times on the day of admission. She also had low bicarb initially, concerning for acute metabolic acidosis/ acute infection. Her platelet count dropped as low as 152 during her stay, just barely above the cut-off for yet another point on the SOFA scoring system. As it was, she met 3 out of 4 Sepsis-2 criteria (only 2 needed), 3 out of 3 qSOFA criteria, & scored 3-4 SOFA points on the Sepsis-3 criteria (depending on whether or not her confusion/AMS was an acute change or her baseline related to memory impairment), when only 2 points indicate likely sepsis based on evidence of Sequential Organ Failure. Furthermore, she was treated appropriately for suspected sepsis. She was promptly given IVF, w/2L of boluses in ED then NS @125 for 3 more liters , & IV broad-spectrum abx, with cultures done. She responded well to her tx. She was subsequently changed to po abx, and discharged after her rhabdomyolysis was sufficiently improved. Unfortunately, though appropriate studies were done, in this case the underlying infection producing the sepsis was not determined. This, however, does not mean there was no sepsis - just that the search for the cause was not successful. Patti Montoya MD, [facility] Physician Advisor
== END 2016-12-23 15:40 | disposition home or self-care (01) | DRG 872 ==
LOC: ER 13:36 → UNDOADMIN 17:28 → EH 17:28 → 3S 19:47 → 4N 12-22 20:45
DX: A41.9 Sepsis, unspecified organism (principal); M62.82 Rhabdomyolysis; M06.9 Rheumatoid arthritis, unspecified; M25.511 Pain in right shoulder; F03.90 Unspecified dementia, unspecified severity, without behavioral disturbance, psychotic disturbance, mood disturbance, and anxiety; K44.9 Diaphragmatic hernia without obstruction or gangrene; M19.90 Unspecified osteoarthritis, unspecified site; Z79.899 Other long term (current) drug therapy; Z90.49 Acquired absence of other specified parts of digestive tract; Z90.710 Acquired absence of both cervix and uterus; Z87.81 Personal history of (healed) traumatic fracture; Z88.2 Allergy status to sulfonamides; Z88.8 Allergy status to other drugs, medicaments and biological substances
CPT/HCPCS: 36415; 51701; 71010; 71260; 74177; 76705; 80048; 80053; 81001; 82550; 82553; 83605; 83690; 83735; 83880; 84484; 85025; 85652; 86140; 87040; 87086; 93005; 93010; 93976; 96360; 99291; G8978-GP; G8979-GP; G8980-GP; J0696; J1650; J3490; J7030

== ENCOUNTER 2018-11-22 11:38 | Inpatient (IN) | payer MEDICARE, BC ==
--- NOTE | 2018-11-22 12:05 | ER Document Report ---
ED Medical Screen (RME) - General Mode of Arrival: Wheelchair Information source: Relative TRAVEL OUTSIDE OF THE [place] IN LAST 30 DAYS: No <RICHARD BUI - Last Filed: 11/22/18 12:03> - General Mode of Arrival: Wheelchair Information source: Patient, Relative <SUMI QURESHI - Last Filed: 11/22/18 13:30> - General Chief Complaint: Fall Stated Complaint: FALL Time Seen by Provider: 11/22/18 11:57 Primary Care Provider: JULIANN KIDD MD [Primary Care Provider] - Follow up as needed Notes: Patient presents to the emergency department post fall. Family members report they noticed a bruise on her right arm. Patient does have dementia. Patient reports she slept in her close. Obvious swelling to the right humerus area noted patient will not let me move her arm. Family members report increased confusion the last few days. Family members report bruise to her right leg and unable to assess in RME. I have greeted and performed a rapid initial assessment of this patient. A comprehensive ED assessment and evaluation of the patient, analysis of test results and completion of the medical decision making process will be conducted by additional ED providers. Dictation of this chart was performed using voice recognition software; therefore, there may be some unintended grammatical errors. (RICHARD BUI) - Related Data Allergies/Adverse Reactions: oxytetracycline [From Terramycin] Allergy (Verified 11/22/18 11:41) Sulfa (Sulfonamide Antibiotics) Allergy (Verified 11/22/18 11:41) Unknown reaction Past Medical History - Social History Family history: Reviewed & Not Pertinent - Past Medical History Cardiac Medical History: Denies: Hx Heart Attack, Hx Hypertension Pulmonary Medical History: Denies: Hx Asthma Neurological Medical History: Denies: Hx Cerebrovascular Accident, Hx Seizures Renal/ Medical History: Denies: Hx Peritoneal Dialysis GI Medical History: Reports: Hx Hiatal Hernia. Denies: Hx Hepatitis, Hx Ulcer Musculoskeltal Medical History: Reports Hx Arthritis - RA Psychiatric Medical History: Denies: Hx Depression Infectious Medical History: Denies: Hx Hepatitis Past Surgical History: Reports: Hx Appendectomy, Hx Hysterectomy, Hx Orthopedic Surgery - ORIF left hip. Denies: Hx Mastectomy, Hx Open Heart Surgery, Hx Pacemaker <RICHARD BUI - Last Filed: 11/22/18 12:03> - Vital signs Vitals: Temp Pulse Resp BP Pulse Ox 98.7 F 78 16 122/59 L 99 11/22/18 11:46 11/22/18 11:46 11/22/18 11:46 11/22/18 11:46 11/22/18 11:46 Course - Laboratory Result Diagrams: 11/22/18 12:20 11/22/18 12:20 <SUMI QURESHI - Last Filed: 11/22/18 13:30> - Vital Signs Vital signs: Temp Pulse Resp BP Pulse Ox 98.7 F 78 16 122/59 L 99 11/22/18 11:46 11/22/18 11:46 11/22/18 11:46 11/22/18 11:46 11/22/18 11:46 - Laboratory Laboratory results interpreted by me: 11/22/18 11/22/18 12:20 12:20 RDW 14.5 H Sodium 130.2 L Chloride 97 L Est GFR (Non-Af Amer) 59 L Glucose 113 H Total Bilirubin 1.7 H AST 37 H Total Protein 8.7 H Doctor's Discharge <RICHARD BUI - Last Filed: 11/22/18 12:03> <SUMI QURESHI - Last Filed: 11/22/18 13:30> - Discharge Referrals: JULIANN KIDD MD [Primary Care Provider] - Follow up as needed
[2018-11-22 12:37] LABS: ABSOLUTE BASOPHILS # (AUTO) 0.1 10^3/uL (0.0-0.2); ABSOLUTE LYMPHOCYTES (AUTO) 1.7 10^3/uL (0.5-4.7); ABSOLUTE MONOCYTES (AUTO) 0.4 10^3/uL (0.1-1.4); ABSOLUTE NEUT (AUTO) 7.4 10^3/uL (1.7-8.2); BASOPHILS % (AUTO) 0.6 % (0-2); EOSINOPHILS % (AUTO) 0.3 % (0-6); HEMATOCRIT 39.9 % (36.0-47.0); HEMOGLOBIN 13.8 g/dL (12.0-15.5); LYMPHOCYTES % (AUTO) 17.8 % (13-45); MEAN CORPUSCULAR HEMOGLOBIN 30.1 pg (27.0-33.4); MEAN CORPUSCULAR HGB CONC 34.6 g/dL (32.0-36.0); MEAN CORPUSCULAR VOLUME 87 fl (80-97); MONOCYTES % (AUTO) 3.8 % (3-13); PLATELET COUNT 171 10^3/uL (150-450); RED BLOOD COUNT 4.59 10^6/uL (3.72-5.28); RED CELL DISTRIBUTION WIDTH 14.5 % (11.5-14.0); SEGMENTED NEUTROPHILS % (AUTO) 77.5 % (42-78); TOTAL CELLS COUNTED % (AUTO) 100 %; WHITE BLOOD COUNT 9.6 10^3/uL (4.0-10.5)
[2018-11-22 12:55] LABS: ALANINE AMINOTRANSFERASE 15 U/L (9-52); ALBUMIN 4.5 g/dL (3.5-5.0); ALKALINE PHOSPHATASE 99 U/L (38-126); ANION GAP 11 (5-19); ASPARTATE AMINO TRANSFERASE 37 U/L (14-36); BILIRUBIN,DIRECT 0.3 mg/dL (0.0-0.4); BILIRUBIN,TOTAL 1.7 mg/dL (0.2-1.3); BLOOD UREA NITROGEN 14 mg/dL (7-20); CALCIUM 9.3 mg/dL (8.4-10.2); CARBON DIOXIDE 22 mmol/L (22-30); CHLORIDE 97 mmol/L (98-107); GLUCOSE 113 mg/dL (75-110); SODIUM 130.2 mmol/L (137-145); TOTAL PROTEIN 8.7 g/dL (6.3-8.2)
--- NOTE | 2018-11-22 13:17 | RADIOLOGY REPORT (SQ) ---
EXAM DESCRIPTION: CT CERVICAL SPINE WITHOUT COMPLETED DATE/TIME: 11/22/2018 1:02 pm REASON FOR STUDY: FALL, SWELLING, PAIN COMPARISON: None. TECHNIQUE: Axial images acquired through the cervical spine without intravenous contrast. Images re viewed with lung, soft tissue and bone windows. Reconstructed coronal and sagittal MPR images review ed. Images stored on PACS. All CT scanners at this facility use dose modulation, iterative reconstruction, and/or weight based d osing when appropriate to reduce radiation dose to as low as reasonably achievable (ALARA). [facility]: Dose Right [facility]: CareDose [facility]: Dose Right [facility]: Teradose 4D [facility]: Smart [employer]ide[employer]ar RADIATION DOSE: CT Rad equipment meets quality standard of care and radiation dose reduction techniq ues were employed. CTDIvol: 13.7 mGy. DLP: 280 mGy-cm. mGy. LIMITATIONS: None. FINDINGS: ALIGNMENT: Anatomic. MINERALIZATION: Normal. VERTEBRAL BODIES: No fractures or dislocation. DISCS: Moderate multilevel disc space height loss and osteophytosis. FACETS, LATERAL MASSES, POSTERIOR ELEMENTS: No fractures. No dislocation. No acute findings. HARDWARE: None in the spine. VISUALIZED RIBS: No fractures. LUNG APICES AND SOFT TISSUES: No significant or acute findings. OTHER: No other significant finding. IMPRESSION: No fracture or static subluxation of the cervical spine. Multilevel cervical disc and f acet degenerative disease. TECHNICAL DOCUMENTATION: JOB ID: [id number] Quality ID # [id number]: Final reports with documentation of one or more dose reduction techniques (e.g., Au tomated exposure control, adjustment of the mA and/or kV according to patient size, use of iterative reconstruction technique) 2010 [employer]- All Rights Reserved Reading location - IP/workstation name: [email or web address]
--- NOTE | 2018-11-22 13:20 | RADIOLOGY REPORT (SQ) ---
EXAM DESCRIPTION: CT HEAD WITHOUT COMPLETED DATE/TIME: 11/22/2018 1:02 pm REASON FOR STUDY: FALL COMPARISON: None. TECHNIQUE: Axial images acquired through the brain without intravenous contrast. Images reviewed wi th bone, brain and subdural windows. Additional sagittal and coronal reconstructions were generated. Images stored on PACS. All CT scanners at this facility use dose modulation, iterative reconstruction, and/or weight based d osing when appropriate to reduce radiation dose to as low as reasonably achievable (ALARA). [facility]: Dose Right [facility]: CareDose [facility]: Dose Right [facility]: Teradose 4D [facility]: [employer] RADIATION DOSE: CT Rad equipment meets quality standard of care and radiation dose reduction techniq ues were employed. CTDIvol: 53.2 mGy. DLP: 1070 mGy-cm. mGy. LIMITATIONS: None. FINDINGS: VENTRICLES: Normal size and contour. CEREBRUM: No masses. No hemorrhage. No midline shift. No evidence for acute infarction. Few scatte red areas of low density in the white matter most likely chronic small vessel ischemic changes. CEREBELLUM: No masses. No hemorrhage. No alteration of density. No evidence for acute infarction. EXTRAAXIAL SPACES: No fluid collections. No masses. ORBITS AND GLOBE: No intra- or extraconal masses. Normal contour of globe without masses. CALVARIUM: No fracture. PARANASAL SINUSES: No fluid or mucosal thickening. SOFT TISSUES: No mass or hematoma. OTHER: No other significant finding. IMPRESSION: No acute intracranial pathology. EVIDENCE OF ACUTE STROKE: NO. COMMENT: Quality ID # [id number]: Final reports with documentation of one or more dose reduction techniques (e.g., Automated exposure control, adjustment of the mA and/or kV according to patient size, use of iterative reconstruction technique) TECHNICAL DOCUMENTATION: JOB ID: [id number] [email or web address]- All Rights Reserved Reading location - IP/workstation name: [email or web address]
--- NOTE | 2018-11-22 13:23 | RADIOLOGY REPORT (SQ) ---
EXAM DESCRIPTION: SHOULDER RIGHT 2 OR MORE VIEWS COMPLETED DATE/TIME: 11/22/2018 1:12 pm REASON FOR STUDY: FALL, SWELLING, PAIN COMPARISON: 12/20/2016 NUMBER OF VIEWS: Three views. TECHNIQUE: Internal rotation, external rotation, and Y view images acquired of the right shoulder. LIMITATIONS: None. FINDINGS: MINERALIZATION: Osteopenia. BONES: There is a comminuted impacted fracture of the proximal right humerus. JOINTS: No dislocation. VISUALIZED LUNGS AND RIBS: No pneumothorax. No rib fracture. SOFT TISSUES: No radiopaque foreign body. OTHER: No other significant finding. IMPRESSION: There is a comminuted, impacted fracture of the proximal right humerus. Consider CT to further evaluate fracture anatomy. TECHNICAL DOCUMENTATION: JOB ID: [id number] [employer]- All Rights Reserved Reading location - IP/workstation name: [email or web address]
--- NOTE | 2018-11-22 13:42 | ER Document Report ---
ED Fall - General Chief Complaint: Fall Stated Complaint: FALL Time Seen by Provider: 11/22/18 11:57 Primary Care Provider: JULIANN KIDD MD [NO LOCAL MD] - Follow up as needed Mode of Arrival: Wheelchair Information source: Patient, Relative TRAVEL OUTSIDE OF THE [place] IN LAST 30 DAYS: No - HPI Patient complains to provider of: fall Occurred: This morning - Pt has h/o dementia but lives alone (next door to family) but had a fall either late last night or earlier this am. No LOC but has R shoulder pain. - Related data Allergies/Adverse Reactions: oxytetracycline [From Terramycin] Allergy (Verified 11/22/18 11:41) Sulfa (Sulfonamide Antibiotics) Allergy (Verified 11/22/18 11:41) Unknown reaction Past Medical History - General Information source: Patient, Relative - Social History Smoking Status: Unknown if Ever Smoked Family History: Reviewed & Not Pertinent Patient has suicidal ideation: No Patient has homicidal ideation: No - Past Medical History Cardiac Medical History: Denies: Hx Heart Attack, Hx Hypertension Pulmonary Medical History: Denies: Hx Asthma Neurological Medical History: Denies: Hx Cerebrovascular Accident, Hx Seizures Renal/ Medical History: Denies: Hx Peritoneal Dialysis GI Medical History: Reports: Hx Hiatal Hernia. Denies: Hx Hepatitis, Hx Ulcer Musculoskeletal Medical History: Reports Hx Arthritis - RA Psychiatric Medical History: Denies: Hx Depression Infectious Medical History: Denies: Hx Hepatitis Past Surgical History: Reports: Hx Appendectomy, Hx Hysterectomy, Hx Orthopedic Surgery - ORIF left hip. Denies: Hx Mastectomy, Hx Open Heart Surgery, Hx Pacemaker - Immunizations Hx Pneumococcal Vaccination: 05/26/07 Review of Systems - Review of Systems Constitutional: No symptoms reported EENT: No symptoms reported Cardiovascular: No symptoms reported Respiratory: No symptoms reported Gastrointestinal: No symptoms reported Musculoskeletal: See HPI, Joint pain Neurological/Psychological: No symptoms reported -: Yes All other systems reviewed and negative Physical Exam - Vital signs Vitals: Temp Pulse Resp BP Pulse Ox 98.7 F 78 16 122/59 L 99 11/22/18 11:46 11/22/18 11:46 11/22/18 11:46 11/22/18 11:46 11/22/18 11:46 - General General appearance: Appears well In distress: None - HEENT Pupils: PERRL Mucous membranes: Normal Pharynx: Normal Neck: Normal, Supple - Respiratory Respiratory status: No respiratory distress Breath sounds: Normal - Cardiovascular Rhythm: Regular Heart sounds: Normal auscultation Murmur: No - Abdominal Inspection: Normal Tenderness: Nontender - Back Back: Normal, Nontender - Extremities General upper extremity: Tender - there is TTP of the R shoulder diffusely with ecchymosis and decreased ROM. N/V intact General lower extremity: Tender - there is some min TTP of the L tib/fib diffusely with FROM and N/V intact. There is no swelling of extremity. Hip: Normal, Nontender - there is FROM of hips bilaterally ; N/V intact - Neurological Neuro grossly intact: Yes Cognition: Short term memory loss Orientation: AAOx4 Course - Re-evaluation Re-evalutation: 11/22/18 14:53 I have spoken to Dr. Erickson and he will admit pt. here as she is unsafe to retur nto her home - Vital Signs Vital signs: Temp Pulse Resp BP Pulse Ox 98.7 F 78 16 122/59 L 99 11/22/18 11:46 11/22/18 11:46 11/22/18 11:46 11/22/18 11:46 11/22/18 11:46 - Laboratory Result Diagrams: 11/22/18 12:20 11/22/18 12:20 Laboratory results interpreted by me: 11/22/18 11/22/18 12:20 12:20 RDW 14.5 H Sodium 130.2 L Chloride 97 L Est GFR (Non-Af Amer) 59 L Glucose 113 H Total Bilirubin 1.7 H AST 37 H Total Protein 8.7 H - Diagnostic Test Radiology reviewed: Reports reviewed - humeral head fx - Consults t.c. dr. Umanzor Time consulted: 14:44 - I have spoken with Dr. Umanzor (Ortho) at [facility] who says there is nothing he would do surgically for this patient today. Discharge - Discharge Clinical Impression: Fracture of humeral head, right, closed Qualifiers: Encounter type: initial encounter Qualified Code(s): S42.291A - Other displaced fracture of upper end of right humerus, initial encounter for closed fracture Condition: Stable Disposition: ADMITTED OBSERVATION Admitting Provider: Georgina (Hospitalist) Unit Admitted: Medical Floor Referrals: JULIANN KIDD MD [NO LOCAL MD] - Follow up as needed
--- NOTE | 2018-11-22 14:45 | RADIOLOGY REPORT (SQ) ---
EXAM DESCRIPTION: TIBIA FIBULA LEFT COMPLETED DATE/TIME: 11/22/2018 2:15 pm REASON FOR STUDY: fall COMPARISON: None. NUMBER OF VIEWS: Two views. TECHNIQUE: Two radiographic images acquired of the left tibia and fibula to include the knee and ank le in at least one projection. LIMITATIONS: None. FINDINGS: MINERALIZATION: Normal. BONES: No acute fracture or dislocation. No worrisome bone lesions. SOFT TISSUES: No obvious swelling or foreign body. OTHER: No other significant finding. IMPRESSION: NEGATIVE STUDY OF THE LEFT TIBIA AND FIBULA. NO RADIOGRAPHIC EVIDENCE OF ACUTE INJURY. TECHNICAL DOCUMENTATION: JOB ID: [id number] [employer]- All Rights Reserved Reading location - IP/workstation name: [email or web address]
[2018-11-22] MEDS ORDERED: ONDANSETRON HCL INJ/PF 4 MG/2 ML SDV IV PRN (15:12)
[2018-11-22] MEDS ORDERED: LEVALBUTEROL HCL NEB 0.63 MG/3 ML AMPUL NEB PRN (15:12)
[2018-11-22] MEDS ORDERED: MORPHINE SULFATE 10 MG/ML INJ IV PRN (15:22)
--- NOTE | 2018-11-22 15:33 | PDOC H&P ---
History of Present Illness Admission Date/PCP: 11/22/18 15:04 STELLA KIDD MD Patient complains of: Right shoulder pain History of Present Illness: ZACHERY IVEY is a 83 year old female history of dementia, rheumatoid arthritis on methotrexate Humira gastroesophageal reflux disease, hypercholesterolemia brought into the emergency room by patient's daughter for her found her confused. Patient lives alone and her daughter lives next door , yesterday patient was fine this morning was found confused and complaining of right shoulder pain decided to bring her to the hospital for further evaluation. The emergency room work-up indicates impacted right humeral fracture. Medical consult was called requested for possible admission and Ortho consult tomorrow morning. Patient is confused unable to give much information due to underlying dementia. Patient's daughter was noted at the bedside I spoke to her on the phone she confirmed the history that she was confused complaining of right shoulder pain and brought to the emergency room for further evaluation. Daughter say her wishes are DNR/DNI. And requesting for placement in a rehab facility. Past Medical History Cardiac Medical History: Denies: Myocardial Infarction, Hypertension Pulmonary Medical History: Denies: Asthma Neurological Medical History: Denies: Seizures GI Medical History: Reports: Hiatal Hernia Denies: Hepatitis Musculoskeltal Medical History: Reports: Arthritis - RA Psychiatric Medical History: Reports: Dementia Denies: Depression Hematology: Denies: Anemia, Sickle Cell Disease Past Surgical History Past Surgical History: Reports: Appendectomy, Hysterectomy, Orthopedic Surgery - ORIF left hip Denies: Mastectomy, Pacemaker Social History Smoking Status: Unknown if Ever Smoked Frequency of Alcohol Use: None Hx Recreational Drug Use: No Drugs: None Hx Prescription Drug Abuse: No - Advance Directive Resuscitation Status: Do Not Resuscitate Surrogate healthcare decision maker:: Daughter Nani has the power of assistant prosecuting attorney. Family History Family History: Reviewed & Not Pertinent Parental Family History Reviewed: Yes - Family history of hypertension present. Children Family History Reviewed: Yes Sibling(s) Family History Reviewed.: Yes Medication/Allergy Home Medications: Azelastine HCl 2 spray NASL DAILY 12/20/16 Donepezil HCl [Aricept 5 mg Tablet] 5 mg PO DAILY 12/20/16 Ergocalciferol (Vitamin D2) [Vitamin D2] 50,000 unit PO KRAMER@1000 12/20/16 Folic Acid [Folvite 1 mg Tablet] 1 mg PO DAILY 12/20/16 Montelukast Sodium [Singulair 10 mg Tablet] 10 mg PO DAILY 12/20/16 Omeprazole 40 mg PO DAILY 12/20/16 Tramadol HCl/Acetaminophen [Ultracet 37.5 mg/325 mg Tablet] 2 tab PO Q8HP PRN 12/20/16 Levofloxacin [Levaquin 500 mg Tablet] 500 mg PO DAILY@1400 #5 tablet 12/23/16 Allergies/Adverse Reactions: oxytetracycline [From Terramycin] Allergy (Verified 11/22/18 11:41) Sulfa (Sulfonamide Antibiotics) Allergy (Verified 11/22/18 11:41) Unknown reaction Review of Systems Constitutional: ABSENT: fever(s), headache(s), weakness, weight gain, weight loss Eyes: ABSENT: visual disturbances Ears: ABSENT: hearing changes Nose, Mouth, and Throat: ABSENT: sore throat Gastrointestinal: ABSENT: constipation, dysphagia, heartburn, hematemesis, hematochezia Musculoskeletal: PRESENT: other - Right shoulder pain. ABSENT: deformity Neurological: PRESENT: confusion Psychiatric: PRESENT: anxiety Physical Exam Vital Signs: Temp Pulse Resp BP Pulse Ox 98.7 F 78 16 122/59 L 99 11/22/18 11:46 11/22/18 11:46 11/22/18 11:46 11/22/18 11:46 11/22/18 11:46 Intake & Output 11/21/18 11/22/18 11/23/18 06:59 06:59 06:59 Weight 52 kg General appearance: PRESENT: no acute distress Head exam: PRESENT: atraumatic Eye exam: PRESENT: PERRLA Mouth exam: PRESENT: moist, tongue midline Teeth exam: PRESENT: poor dentation Neck exam: ABSENT: carotid bruit, JVD, lymphadenopathy, thyromegaly Respiratory exam: PRESENT: decreased breath sounds Cardiovascular exam: PRESENT: RRR. ABSENT: diastolic murmur, rubs, systolic murmur GI/Abdominal exam: PRESENT: normal bowel sounds, soft. ABSENT: distended, guarding, mass, organolmegaly, rebound, tenderness Rectal exam: PRESENT: deferred Extremities exam: PRESENT: other - Bruits is present on the right shoulder complaining of pain on gentle touch. Neurological exam: PRESENT: altered, CN II-XII grossly intact, other - Patient is confused because of her dementia. No focal neurological deficits. Results Laboratory Results: 11/22/18 12:20 11/22/18 12:20 11/22/18 11/22/18 12:20 12:20 WBC 9.6 RBC 4.59 Hgb 13.8 Hct 39.9 MCV 87 MCH 30.1 MCHC 34.6 RDW 14.5 H Plt Count 171 Seg Neutrophils % 77.5 Lymphocytes % 17.8 Monocytes % 3.8 Eosinophils % 0.3 Basophils % 0.6 Absolute Neutrophils 7.4 Absolute Lymphocytes 1.7 Absolute Monocytes 0.4 Absolute Eosinophils 0.0 Absolute Basophils 0.1 Sodium 130.2 L Potassium 4.0 Chloride 97 L Carbon Dioxide 22 Anion Gap 11 BUN 14 Creatinine 0.91 Est GFR ( Amer) > 60 Est GFR (Non-Af Amer) 59 L Glucose 113 H Calcium 9.3 Total Bilirubin 1.7 H AST 37 H ALT 15 Alkaline Phosphatase 99 Total Protein 8.7 H Albumin 4.5 Impressions: Head CT 11/22/18 12:01 IMPRESSION: No acute intracranial pathology. EVIDENCE OF ACUTE STROKE: NO. Cervical Spine CT 11/22/18 12:03 IMPRESSION: No fracture or static subluxation of the cervical spine. Multilevel cervical disc and facet degenerative disease. Shoulder X-Ray 11/22/18 12:03 IMPRESSION: There is a comminuted, impacted fracture of the proximal right humerus. Consider CT to further evaluate fracture anatomy. Tibia/Fibula X-Ray 11/22/18 13:27 IMPRESSION: NEGATIVE STUDY OF THE LEFT TIBIA AND FIBULA. NO RADIOGRAPHIC EVIDENCE OF ACUTE INJURY. Assessment and Plan - Diagnosis (1) Fracture of humeral head, right, closed Qualifiers: Encounter type: initial encounter Qualified Code(s): S42.291A - Other displaced fracture of upper end of right humerus, initial encounter for closed fracture Is this a current diagnosis for this admission?: Yes Plan: 11/22/2018-patient is going to be admitted to medical floor. Patient is DNR/DNI. Ortho consult was requested. Started on morphine 1 mg IV every 4 as needed for pain. GI prophylaxis DVT prophylaxis was initiated. fellmongery worker consult was requested PT OT consult was requested. (2) Rheumatoid arthritis Is this a current diagnosis for this admission?: No Plan: 11/22/2018-patient has history of rheumatoid arthritis she is taking methotrexate every 3 weeks and also Humira injections. And is to continue the management during the hospital stay. (3) Dementia Is this a current diagnosis for this admission?: No Plan: 11/22/2018-patient has history of dementia she is on donezepil at home which was resumed during this hospital stay. (4) Hyponatremia Is this a current diagnosis for this admission?: Yes Plan: 11/22/2018-patient serum sodium is 130 hyponatremia may be secondary to poor oral intake. Started on normal saline at 50 cc/h to recheck the labs tomorrow. - Time Time Spent with patient: 25-34 minutes Medications reviewed and adjusted accordingly: Yes Anticipated discharge: SNF
--- NOTE | 2018-11-22 16:09 | RADIOLOGY REPORT (SQ) ---
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 NUMBER OF VIEWS: Two views TECHNIQUE: AP pelvis and additional frog-leg view of both hips. LIMITATIONS: None. FINDINGS: MINERALIZATION: Normal. HIPS: Old fracture of the left hip. Hardware in place. No acute fracture or dislocation. No worriso me bone lesions. PELVIS AND SACRUM: No acute fracture or dislocation. No worrisome bone lesions. PUBIS AND ISCHIUM: No acute fracture. LOWER LUMBAR SPINE: No significant findings as visualized. SOFT TISSUES: No findings. OTHER: No other significant finding. IMPRESSION: NO ACUTE FINDINGS. TECHNICAL DOCUMENTATION: JOB ID: [id number] [employer]- All Rights Reserved Reading location - IP/workstation name: [email or web address]
[2018-11-22 16:30] LABS: APPEARANCE,URINE CLEAR; BILIRUBIN,URINE NEGATIVE (NEGATIVE); COLOR,URINE YELLOW; GLUCOSE, URINE NEGATIVE (NEGATIVE); KETONES,URINE 20 mg/dL (NEGATIVE); LEUKOCYTE ESTERASE,URINE NEGATIVE (NEGATIVE); NITRITE,URINE NEGATIVE (NEGATIVE); PROTEIN,URINE NEGATIVE (NEGATIVE)
[2018-11-22] MEDS: FAMOTIDINE 20 MG TABLET PO SCH ×2 (16:37→21:16)
[2018-11-22] MEDS: NORMAL SALINE 1000 ML 1,000 ML IV PRN (16:43)
[2018-11-22] MEDS ORDERED: ENOXAPARIN SODIUM INJ 30 MG/0.3 ML DISP.SYRIN SUBCUT ONE (17:00)
[2018-11-22] MEDS ORDERED: HALOPERIDOL 2 MG TABLET PO PRN (21:02)
[2018-11-22] MEDS: LORAZEPAM 0.5 MG TABLET PO PRN (21:16)
--- NOTE | 2018-11-22 22:31 | EKG REPORT ---
SEVERITY:- ABNORMAL ECG - SINUS RHYTHM PROBABLE INFERIOR INFARCT, AGE INDETERMINATE : Confirmed by: Jer Anand 22-Nov-2018 22:30:22
[2018-11-23 06:53] LABS: ABSOLUTE BASOPHILS # (AUTO) 0.1 10^3/uL (0.0-0.2); ABSOLUTE EOSINOPHILS # (AUTO) 0.1 10^3/uL (0.0-0.6); ABSOLUTE LYMPHOCYTES (AUTO) 1.9 10^3/uL (0.5-4.7); ABSOLUTE MONOCYTES (AUTO) 0.5 10^3/uL (0.1-1.4); ABSOLUTE NEUT (AUTO) 5.1 10^3/uL (1.7-8.2); BASOPHILS % (AUTO) 0.9 % (0-2); EOSINOPHILS % (AUTO) 1.1 % (0-6); HEMATOCRIT 35.5 % (36.0-47.0); HEMOGLOBIN 12.4 g/dL (12.0-15.5); MEAN CORPUSCULAR HEMOGLOBIN 30.1 pg (27.0-33.4); MEAN CORPUSCULAR HGB CONC 34.9 g/dL (32.0-36.0); MEAN CORPUSCULAR VOLUME 86 fl (80-97); MONOCYTES % (AUTO) 6.5 % (3-13); PLATELET COUNT 140 10^3/uL (150-450); RED BLOOD COUNT 4.12 10^6/uL (3.72-5.28); RED CELL DISTRIBUTION WIDTH 14.1 % (11.5-14.0); SEGMENTED NEUTROPHILS % (AUTO) 66.5 % (42-78); TOTAL CELLS COUNTED % (AUTO) 100 %; WHITE BLOOD COUNT 7.7 10^3/uL (4.0-10.5)
[2018-11-23 06:59] LABS: INTERNATIONAL RATION (INR) 1.31; PROTHROMBIN TIME 16.4 SEC (11.4-15.4)
[2018-11-23 07:17] LABS: ALANINE AMINOTRANSFERASE 14 U/L (9-52); ALBUMIN 3.7 g/dL (3.5-5.0); ALKALINE PHOSPHATASE 76 U/L (38-126); ANION GAP 11 (5-19); ASPARTATE AMINO TRANSFERASE 32 U/L (14-36); BILIRUBIN,DIRECT 0.4 mg/dL (0.0-0.4); BILIRUBIN,TOTAL 1.5 mg/dL (0.2-1.3); BLOOD UREA NITROGEN 15 mg/dL (7-20); CALCIUM 8.4 mg/dL (8.4-10.2); CARBON DIOXIDE 21 mmol/L (22-30); CHLORIDE 102 mmol/L (98-107); CHOLESTEROL 105.66 mg/dL (0-200); GLUCOSE 97 mg/dL (75-110); POTASSIUM 4.1 mmol/L (3.6-5.0); SODIUM 133.7 mmol/L (137-145); TOTAL PROTEIN 7.3 g/dL (6.3-8.2); TRIGLYCERIDES 86 mg/dL (<150)
[2018-11-23 07:28] LABS: DIRECT LDL 53 mg/dL (<100)
[2018-11-23] MEDS: ENOXAPARIN SODIUM INJ 30 MG/0.3 ML DISP.SYRIN SUBCUT SCH (10:11)
--- NOTE | 2018-11-23 10:13 | PDOC PROGRESS REPORT ---
Subjective Progress Note for:: 11/23/18 Subjective:: 83 year old female history of dementia, rheumatoid arthritis on methotrexate Humira gastroesophageal reflux disease, hypercholesterolemia brought into the emergency room by patient's daughter for her found her confused. Patient lives alone and her daughter lives next door , yesterday patient was fine this morning was found confused and complaining of right shoulder pain decided to bring her to the hospital for further evaluation. The emergency room work-up indicates impacted right humeral fracture. Medical consult was called requested for possible admission and Ortho consult tomorrow morning. Patient is confused unable to give much information due to underlying dementia. Patient's daughter was noted at the bedside I spoke to her on the phone she confirmed the history that she was confused complaining of right shoulder pain and brought to the emergency room for further evaluation. Daughter say her wishes are DNR/DNI. And requesting for placement in a rehab facility. [id number] female admitted with history of fall and impacted right humeral fracture. We do not have the artery available yesterday and today. Continue to conservative management. Patient is DNR/DNI. The daughter was at bedside today she is requesting for long-term care facility placement. Reason For Visit: RT HUMERAL FRACTURE Physical Exam Vital Signs: Temp Pulse Resp BP Pulse Ox 98.1 F 58 L 12 135/61 H 100 11/23/18 07:51 11/23/18 07:51 11/23/18 07:51 11/23/18 07:51 11/23/18 07:51 Intake & Output 11/22/18 11/23/18 11/24/18 06:59 06:59 06:59 Intake Total 100 Output Total 300 Balance -200 Weight 52 kg General appearance: PRESENT: no acute distress, disheveled, thin Head exam: PRESENT: atraumatic Eye exam: PRESENT: PERRLA Ear exam: PRESENT: normal external ear exam Mouth exam: PRESENT: neck supple Teeth exam: PRESENT: poor dentation Neck exam: ABSENT: carotid bruit, JVD, lymphadenopathy, thyromegaly Respiratory exam: PRESENT: decreased breath sounds Cardiovascular exam: PRESENT: RRR. ABSENT: diastolic murmur, rubs, systolic murmur GI/Abdominal exam: PRESENT: normal bowel sounds, soft. ABSENT: distended, guarding, mass, organolmegaly, rebound, tenderness Rectal exam: PRESENT: deferred Extremities exam: PRESENT: other - Right upper arm was swollen and bruises present. It is due to humeral fracture. Neurological exam: PRESENT: alert Psychiatric exam: PRESENT: anxious Results Laboratory Results: 11/23/18 06:25 11/23/18 06:25 11/22/18 11/22/18 11/22/18 12:20 12:20 16:12 WBC 9.6 RBC 4.59 Hgb 13.8 Hct 39.9 MCV 87 MCH 30.1 MCHC 34.6 RDW 14.5 H Plt Count 171 Seg Neutrophils % 77.5 Lymphocytes % 17.8 Monocytes % 3.8 Eosinophils % 0.3 Basophils % 0.6 Absolute Neutrophils 7.4 Absolute Lymphocytes 1.7 Absolute Monocytes 0.4 Absolute Eosinophils 0.0 Absolute Basophils 0.1 Sodium 130.2 L Potassium 4.0 Chloride 97 L Carbon Dioxide 22 Anion Gap 11 BUN 14 Creatinine 0.91 Est GFR ( Amer) > 60 Est GFR (Non-Af Amer) 59 L Glucose 113 H Calcium 9.3 Magnesium Total Bilirubin 1.7 H AST 37 H ALT 15 Alkaline Phosphatase 99 Total Protein 8.7 H Albumin 4.5 Triglycerides Cholesterol LDL Cholesterol Direct VLDL Cholesterol HDL Cholesterol TSH Urine Color YELLOW Urine Appearance CLEAR Urine pH 5.0 Ur Specific Wilmot 1.020 Urine Protein NEGATIVE Urine Glucose (UA) NEGATIVE Urine Ketones 20 H Urine Blood SMALL H Urine Nitrite NEGATIVE Ur Leukocyte Esterase NEGATIVE Urine WBC (Auto) 5 Urine RBC (Auto) 1 11/23/18 11/23/18 11/23/18 06:25 06:25 06:25 WBC 7.7 RBC 4.12 Hgb 12.4 Hct 35.5 L MCV 86 MCH 30.1 MCHC 34.9 RDW 14.1 H Plt Count 140 L Seg Neutrophils % 66.5 Lymphocytes % 25.0 Monocytes % 6.5 Eosinophils % 1.1 Basophils % 0.9 Absolute Neutrophils 5.1 Absolute Lymphocytes 1.9 Absolute Monocytes 0.5 Absolute Eosinophils 0.1 Absolute Basophils 0.1 Sodium 133.7 L Potassium 4.1 Chloride 102 Carbon Dioxide 21 L Anion Gap 11 BUN 15 Creatinine 0.75 Est GFR ( Amer) > 60 Est GFR (Non-Af Amer) > 60 Glucose 97 Calcium 8.4 Magnesium 2.3 Total Bilirubin 1.5 H AST 32 ALT 14 Alkaline Phosphatase 76 Total Protein 7.3 Albumin 3.7 Triglycerides 86 Cholesterol 105.66 LDL Cholesterol Direct 53 VLDL Cholesterol 17.0 HDL Cholesterol 43 TSH 2.61 Urine Color Urine Appearance Urine pH Ur Specific Wilmot Urine Protein Urine Glucose (UA) Urine Ketones Urine Blood Urine Nitrite Ur Leukocyte Esterase Urine WBC (Auto) Urine RBC (Auto) 11/22/18 11/22/18 11/22/18 12:20 12:20 18:30 Creatine Kinase 258 H 258 H Troponin I < 0.012 NT-Pro-B Natriuret Pep 11/22/18 11/23/18 11/23/18 18:30 00:38 00:38 Creatine Kinase 368 H Troponin I < 0.012 0.042 NT-Pro-B Natriuret Pep 11/23/18 06:25 Creatine Kinase Troponin I NT-Pro-B Natriuret Pep 393 Impressions: Head CT 11/22/18 12:01 IMPRESSION: No acute intracranial pathology. EVIDENCE OF ACUTE STROKE: NO. Cervical Spine CT 11/22/18 12:03 IMPRESSION: No fracture or static subluxation of the cervical spine. Multilevel cervical disc and facet degenerative disease. Shoulder X-Ray 11/22/18 12:03 IMPRESSION: There is a comminuted, impacted fracture of the proximal right humerus. Consider CT to further evaluate fracture anatomy. Tibia/Fibula X-Ray 11/22/18 13:27 IMPRESSION: NEGATIVE STUDY OF THE LEFT TIBIA AND FIBULA. NO RADIOGRAPHIC EVIDENCE OF ACUTE INJURY. Hip X-Ray 11/22/18 14:41 IMPRESSION: NO ACUTE FINDINGS. Assessment and Plan - Diagnosis (1) Fracture of humeral head, right, closed Qualifiers: Encounter type: initial encounter Qualified Code(s): S42.291A - Other displaced fracture of upper end of right humerus, initial encounter for closed fracture Is this a current diagnosis for this admission?: Yes Plan: 11/22/2018-patient is going to be admitted to medical floor. Patient is DNR/DNI. Ortho consult was requested. Started on morphine 1 mg IV every 4 as needed for pain. GI prophylaxis DVT prophylaxis was initiated. boom stick worker consult was requested PT OT consult was requested. 05/26/2018-patient admitted with history of fall with right humeral fracture. Presently on conservative management. Ortho consult was requested, PT OT consult was requested child protective services social worker consult was requested. (2) Rheumatoid arthritis Is this a current diagnosis for this admission?: No Plan: 11/22/2018-patient has history of rheumatoid arthritis she is taking methotrexate every 3 weeks and also Humira injections. And is to continue the management during the hospital stay. 05/2018-patient has history of rheumatoid arthritis on methotrexate and Humira plan is to continue with his medications. (3) Dementia Is this a current diagnosis for this admission?: No (4) Hyponatremia Is this a current diagnosis for this admission?: Yes Plan: 11/22/2018-patient serum sodium is 130 hyponatremia may be secondary to poor oral intake. Started on normal saline at 50 cc/h to recheck the labs tomorrow. 11/23/2018-patient came in with serum sodium of 130 started on normal saline it is improved to 133.7. Hyponatremia most likely secondary to poor oral intake. - Time Time Spent with patient: 25-34 minutes Medications reviewed and adjusted accordingly: Yes Anticipated discharge: SNF
[2018-11-23] MEDS: FAMOTIDINE 20 MG TABLET PO SCH ×2 (10:15→21:10)
[2018-11-23] MEDS: NORMAL SALINE 1000 ML 1,000 ML IV PRN ×2 (12:08→12:30)
[2018-11-23] MEDS ORDERED: NORMAL SALINE 1000 ML 1,000 ML IV PRN (12:09)
[2018-11-23] MEDS ORDERED: ONDANSETRON HCL INJ/PF 4 MG/2 ML SDV IV PRN (13:00)
[2018-11-23] MEDS: OXYCODONE-ACETAMINOPHEN 5-325 MG TABLET PO PRN (18:44)
[2018-11-23] MEDS: LORAZEPAM 0.5 MG TABLET PO PRN (21:10)
[2018-11-23] MEDS: ATORVASTATIN CALCIUM 20 MG TABLET PO SCH (21:10)
[2018-11-24] MEDS: NORMAL SALINE 1000 ML 1,000 ML IV PRN (06:10)
--- NOTE | 2018-11-24 09:10 | PDOC CONSULTATION ---
Consultation Consult Date: 11/24/18 Provider Consulted: REGINO GALLEGO History of Present Illness Admission Date/PCP: 11/22/18 15:04 STELLA KIDD MD Patient complains of: Right shoulder pain History of Present Illness: ZACHERY IVEY is a 83 year old female with history of dementia that was brou ght to the emergency room due to increased confusion and complaints of right shoulder pain on 11/22/2018. Patient unable to give complete adequate history history obtained from previous records. Currently patient states her pain is controlled. Unable to answer exact mechanism of her injury. Denies numbness or tingling. HPI limited secondary to patient's history of dementia. Past Medical History Cardiac Medical History: Denies: Myocardial Infarction, Hypertension Pulmonary Medical History: Denies: Asthma Neurological Medical History: Denies: Seizures GI Medical History: Reports: Hiatal Hernia Denies: Hepatitis Musculoskeltal Medical History: Reports: Arthritis - RA Psychiatric Medical History: Reports: Dementia Denies: Depression Hematology: Denies: Anemia, Sickle Cell Disease Past Surgical History Past Surgical History: Reports: Appendectomy, Hysterectomy, Orthopedic Surgery - ORIF left hip Denies: Mastectomy, Pacemaker Social History Smoking Status: Never Smoker Frequency of Alcohol Use: None Hx Recreational Drug Use: No Drugs: None Hx Prescription Drug Abuse: No - Advance Directive Resuscitation Status: Do Not Resuscitate Family History Family History: Reviewed & Not Pertinent Parental Family History Reviewed: No Children Family History Reviewed: No Sibling(s) Family History Reviewed.: No Medication/Allergy Home Medications: Adalimumab [Humira Pen] 40 mg SQ Q21D 11/23/18 Atorvastatin Calcium [Lipitor 20 mg Tablet] 20 mg PO QHS 11/23/18 Donepezil HCl [Aricept 5 mg Tablet] 5 mg PO DAILY 11/23/18 Ergocalciferol (Vitamin D2) [Vitamin D2] 50 mcg PO FR@1000 11/23/18 Folic Acid [Folvite 1 mg Tablet] 1 mg PO DAILY 11/23/18 Methotrexate Sodium [Rheumatrex 2.5 mg Tablet] 10 mg PO FR@1000 11/23/18 Omeprazole 40 mg PO DAILY 11/23/18 Allergies/Adverse Reactions: oxytetracycline [From Terramycin] Allergy (Verified 11/22/18 11:41) Sulfa (Sulfonamide Antibiotics) Allergy (Verified 11/22/18 11:41) Unknown reaction Review of Systems ROS unobtainable: Due to mental status Physical Exam Vital Signs: Temp Pulse Resp BP Pulse Ox 98.1 F 109 H 16 109/63 99 11/23/18 23:28 11/23/18 23:28 11/23/18 23:28 11/23/18 23:28 11/23/18 23:28 Intake & Output 11/23/18 11/24/18 11/25/18 06:59 06:59 06:59 Intake Total 100 2692 Output Total 300 350 Balance -200 2342 Weight 52 kg 52.4 kg General appearance: PRESENT: no acute distress, well-developed, well-nourished Head exam: PRESENT: atraumatic, normocephalic Eye exam: PRESENT: conjunctiva pink, EOMI, PERRLA. ABSENT: scleral icterus Ear exam: PRESENT: normal external ear exam Mouth exam: PRESENT: moist, tongue midline Neck exam: PRESENT: full ROM. ABSENT: carotid bruit, JVD, lymphadenopathy, thyromegaly Respiratory exam: PRESENT: unlabored Cardiovascular exam: PRESENT: RRR. ABSENT: diastolic murmur, rubs, systolic murmur Pulses: PRESENT: normal dorsalis pedis pul, +2 pedal pulses bilateral Vascular exam: PRESENT: normal capillary refill GI/Abdominal exam: PRESENT: normal bowel sounds, soft. ABSENT: distended, guarding, mass, organolmegaly, rebound, tenderness Rectal exam: PRESENT: deferred Musculoskeletal exam: PRESENT: other - Right upper extremity: Swelling and ecchymosis along the proximal aspect of the humerus with appropriate tenderness palpation. No evidence of deformity. No evidence of skin compromise. Full ext ension of the IP/MP joints. Full flexion. EPL/FPL intact. No sensory deficits. Compartments soft and compressible no sign of compartment syndrome. Neurological exam: PRESENT: alert, awake, oriented to person, oriented to place, CN II-XII grossly intact. ABSENT: motor sensory deficit Psychiatric exam: PRESENT: appropriate affect, normal mood. ABSENT: homicidal ideation, suicidal ideation Skin exam: PRESENT: dry, intact, warm. ABSENT: cyanosis, rash Results Laboratory Results: 11/23/18 06:25 11/23/18 06:25 11/22/18 16:12 Catheterized Urine Urine Culture - Final Enterococcus Faecalis(Group D) 11/22/18 11/22/1811/22/19 12:20 12:20 18:30 Creatine Kinase 258 H 258 H Troponin I < 0.012 NT-Pro-B Natriuret Pep 11/22/18 11/23/18 11/23/18 18:30 00:38 00:38 Creatine Kinase 368 H Troponin I < 0.012 0.042 NT-Pro-B Natriuret Pep 11/23/18 06:25 Creatine Kinase Troponin I NT-Pro-B Natriuret Pep 393 Impressions: Head CT 11/22/18 12:01 IMPRESSION: No acute intracranial pathology. EVIDENCE OF ACUTE STROKE: NO. Cervical Spine CT 11/22/18 12:03 IMPRESSION: No fracture or static subluxation of the cervical spine. Multileve l cervical disc and facet degenerative disease. Shoulder X-Ray 11/22/18 12:03 IMPRESSION: There is a comminuted, impacted fracture of the proximal right humerus. Consider CT to further evaluate fracture anatomy. Tibia/Fibula X-Ray 11/22/18 13:27 IMPRESSION: NEGATIVE STUDY OF THE LEFT TIBIA AND FIBULA. NO RADIOGRAPHIC EVIDENCE OF ACUTE INJURY. Hip X-Ray 11/22/18 14:41 IMPRESSION: NO ACUTE FINDINGS. Assessment & Plan - Diagnosis (1) Proximal humerus fracture Qualifiers: Encounter type: initial encounter Fracture type: closed Fracture alignment: displaced Laterality: right Is this a current diagnosis for this admission?: Yes Plan: Patient sustained a proximal humerus fracture with collapse however current alignment within acceptable confines for nonoperative/conservative treatment. At this point patient will continue sling for comfort along with ice. May continue elbow wrist and hand range of motion. Patient will maintain nonweightbearing the right upper extremity. May follow-up as an outpatient for further evaluation and healing.
[2018-11-24] MEDS: FOLIC ACID 1 MG TABLET PO SCH (10:35)
[2018-11-24] MEDS: OXYCODONE-ACETAMINOPHEN 5-325 MG TABLET PO PRN ×2 (10:35→21:27)
[2018-11-24] MEDS: FAMOTIDINE 20 MG TABLET PO SCH ×2 (10:35→21:27)
[2018-11-24] MEDS: ENOXAPARIN SODIUM INJ 30 MG/0.3 ML DISP.SYRIN SUBCUT SCH (10:37)
[2018-11-24] MEDS: DONEPEZIL HCL 5 MG TABLET PO SCH (10:38)
[2018-11-24] MEDS: LORAZEPAM 0.5 MG TABLET PO PRN ×2 (11:27→21:27)
--- NOTE | 2018-11-24 11:54 | Physician Advisory Note ---
Physician Advisor ProgressNote .: Pursuant to the plan for [facility], I have reviewed the medical record for this patient. Physician Advisor Statement: Pt continuing to need restraints on 7 PM & 7/2 AM due to agitation/pulling at IV & Martinez. Appropriately changed back to INpt status as 2nd MN became clinically indicated. CK
[2018-11-24] MEDS: ACETAMINOPHEN 325 MG TABLET PO PRN (12:42)
[2018-11-24] MEDS: HALOPERIDOL 0.5 MG TABLET PO PRN (14:43)
--- NOTE | 2018-11-24 18:20 | PDOC PROGRESS REPORT ---
Subjective Progress Note for:: 11/24/18 Subjective:: 11/24: Some care. Reviewed chart and course. This is an 83-year-old female with a past medical history of dementia, rheumatoid arthritis on methotrexate and Humira gastroesophageal reflux disease, and hypercholesterolemia who fell and was found confused at home. She also presented with right shoulder pain and was noted to have been packed and right humeral fracture. Patient did have episodes of agitation and required restraints. This morning, she appears comfortable and appears to be at her baseline. She is oriented to person and place. Will take off restraints. Patient is not able to tell me that she did feel dizzy at home and hence fell on her right shoulder on the porch. She did have a low sodium of 130 when she presented and this appears to be acute compared to her previous sodium levels. Orthopedics has recommended nonsurgical/conservative management of her right shoulder fracture and outpatient Ortho follow-up. Patient's daughter says that patient does have fall risk at home and lives alone. She says she is unable to take care of patient at home and is concerned about her safety. Reason For Visit: FALL WITH HUMERAL FRACTURE Physical Exam Vital Signs: Temp Pulse Resp BP Pulse Ox 98.1 F 109 H 16 109/63 99 11/23/18 23:28 11/23/18 23:28 11/23/18 23:28 11/23/18 23:28 11/23/18 23:28 Intake & Output 11/23/18 11/24/18 11/25/18 06:59 06:59 06:59 Intake Total 100 2692 Output Total 300 350 Balance -200 2342 Weight 114 lb 10.246 oz 115 lb 8.356 oz General appearance: PRESENT: no acute distress, well-developed, well-nourished Head exam: PRESENT: atraumatic, normocephalic Eye exam: PRESENT: conjunctiva pink, EOMI, PERRLA. ABSENT: scleral icterus Ear exam: PRESENT: normal external ear exam Mouth exam: PRESENT: moist, tongue midline Neck exam: ABSENT: carotid bruit, JVD, lymphadenopathy, thyromegaly Respiratory exam: PRESENT: clear to auscultation marvin. ABSENT: rales, rhonchi, wheezes Cardiovascular exam: PRESENT: RRR. ABSENT: diastolic murmur, rubs, systolic murmur Pulses: PRESENT: normal dorsalis pedis pul GI/Abdominal exam: PRESENT: normal bowel sounds, soft. ABSENT: distended, guarding, mass, organolmegaly, rebound, tenderness Rectal exam: PRESENT: deferred Extremities exam: PRESENT: other - + Right shoulder splint Neurological exam: PRESENT: alert, awake, oriented to person, oriented to place Results Laboratory Results: 11/23/18 06:25 11/23/18 06:25 11/22/18 16:12 Catheterized Urine Urine Culture - Final Enterococcus Faecalis(Group D) 11/22/18 11/22/18 11/22/18 12:20 12:20 18:30 Creatine Kinase 258 H 258 H Troponin I < 0.012 NT-Pro-B Natriuret Pep 11/22/18 11/23/18 11/23/18 18:30 00:38 00:38 Creatine Kinase 368 H Troponin I < 0.012 0.042 NT-Pro-B Natriuret Pep 11/23/18 06:25 Creatine Kinase Troponin I NT-Pro-B Natriuret Pep 393 Impressions: Head CT 11/22/18 12:01 IMPRESSION: No acute intracranial pathology. EVIDENCE OF ACUTE STROKE: NO. Cervical Spine CT 11/22/18 12:03 IMPRESSION: No fracture or static subluxation of the cervical spine. Multi level cervical disc and facet degenerative disease. Shoulder X-Ray 11/22/18 12:03 IMPRESSION: There is a comminuted, impacted fracture of the proximal right humerus. Consider CT to further evaluate fracture anatomy. Tibia/Fibula X-Ray 11/22/18 13:27 IMPRESSION: NEGATIVE STUDY OF THE LEFT TIBIA AND FIBULA. NO RADIOGRAPHIC EVIDENCE OF ACUTE INJURY. Hip X-Ray 11/22/18 14:41 IMPRESSION: NO ACUTE FINDINGS. Assessment and Plan - Diagnosis (1) Acute encephalopathy Is this a current diagnosis for this admission?: Yes Plan: Multifactorial from hyponatremia, acute delirium and severe shoulder pain in a dementia patient. Improving. Will take off restraints today. (2) Acute hyponatremia Is this a current diagnosis for this admission?: Yes Plan: Likely symptomatic hyponatremia from dehydration. Although sodium level was not severely low at 130, this likely contributed to patient's dizziness and fall given her being an elderly demented patient. Continue IV fluids. Repeat BMP tomorrow. (3) Fracture of humeral head, right, closed Qualifiers: Encounter type: initial encounter Qualified Code(s): S42.291A - Other displaced fracture of upper end of right humerus, initial encounter for closed fracture Is this a current diagnosis for this admission?: Yes Plan: As mentioned, orthopedics has recommended conservative/nonsurgical management. (4) Rheumatoid arthritis Is this a current diagnosis for this admission?: Yes Plan: On methotrexate and Humira at home. - Time Time Spent with patient: 25-34 minutes
[2018-11-24] MEDS: ATORVASTATIN CALCIUM 20 MG TABLET PO SCH (21:27)
[2018-11-25] MEDS: NORMAL SALINE 1000 ML 1,000 ML IV PRN ×2 (05:19→10:52)
[2018-11-25 06:46] LABS: ANION GAP 7 (5-19); BLOOD UREA NITROGEN 10 mg/dL (7-20); CALCIUM 8.5 mg/dL (8.4-10.2); CARBON DIOXIDE 24 mmol/L (22-30); CHLORIDE 105 mmol/L (98-107); GLUCOSE 90 mg/dL (75-110); POTASSIUM 3.8 mmol/L (3.6-5.0)
[2018-11-25] MEDS: OXYCODONE-ACETAMINOPHEN 5-325 MG TABLET PO PRN ×2 (10:54→17:14)
[2018-11-25] MEDS: DONEPEZIL HCL 5 MG TABLET PO SCH (10:55)
[2018-11-25] MEDS: FOLIC ACID 1 MG TABLET PO SCH (10:55)
[2018-11-25] MEDS: FAMOTIDINE 20 MG TABLET PO SCH ×2 (10:55→21:49)
[2018-11-25] MEDS: ENOXAPARIN SODIUM INJ 30 MG/0.3 ML DISP.SYRIN SUBCUT SCH (10:56)
--- NOTE | 2018-11-25 15:28 | PDOC PROGRESS REPORT ---
Subjective Progress Note for:: 11/25/18 Subjective:: 11/24: Some care. Reviewed chart and course. This is an 83-year-old female with a past medical history of dementia, rheumatoid arthritis on methotrexate and Humira gastroesophageal reflux disease, and hypercholesterolemia who fell and was found confused at home. She also presented with right shoulder pain and was noted to have been packed and right humeral fracture. Patient did have episodes of agitation and required restraints. This morning, she appears comfortable and appears to be at her baseline. She is oriented to person and place. Will take off restraints. Patient is not able to tell me that she did feel dizzy at home and hence fell on her right shoulder on the porch. She did have a low sodium of 130 when she presented and this appears to be acute compared to her previous sodium levels. Orthopedics has recommended nonsurgical/conservative management of her right shoulder fracture and outpatient Ortho follow-up. Patient's daughter says that patient does have fall risk at home and lives alone. She says she is unable to take care of patient at home and is concerned about her safety. 11/25: No acute event overnight. She is at her baseline mentation. No combative behavior agitation last night. Right shoulder pain is well controlled. Rehab placement process initiated. She will be discharged to rehab/SNF once approved and when she gets a bed. Reason For Visit: ENCEPHALOPATHY,HYPONATREMIA Physical Exam Vital Signs: Temp Pulse Resp BP Pulse Ox 97.3 F 68 18 136/65 H 100 11/25/18 10:57 11/25/18 10:57 11/25/18 10:57 11/25/18 10:57 11/25/18 10:57 Intake & Output 11/24/18 11/25/18 11/26/18 06:59 06:59 06:59 Intake Total 2692 1720 278 Output Total 350 Balance 2342 1720 278 Weight 115 lb 8.356 oz 115 lb 8.356 oz General appearance: PRESENT: no acute distress, well-developed, well-nourished Head exam: PRESENT: atraumatic, normocephalic Eye exam: PRESENT: conjunctiva pink, EOMI, PERRLA. ABSENT: scleral icterus Ear exam: PRESENT: normal external ear exam Mouth exam: PRESENT: moist, tongue midline Neck exam: ABSENT: carotid bruit, JVD, lymphadenopathy, thyromegaly Respiratory exam: PRESENT: clear to auscultation marvin. ABSENT: rales, rhonchi, wheezes Cardiovascular exam: PRESENT: RRR. ABSENT: diastolic murmur, rubs, systolic murmur Pulses: PRESENT: normal dorsalis pedis pul GI/Abdominal exam: PRESENT: normal bowel sounds, soft. ABSENT: distended, guarding, mass, organolmegaly, rebound, tenderness Rectal exam: PRESENT: deferred Neurological exam: PRESENT: alert, awake, oriented to person, oriented to place, CN II-XII grossly intact. ABSENT: motor sensory deficit Results Laboratory Results: 11/23/18 06:25 11/25/18 06:00 11/25/18 06:00 Sodium 136.0 L Potassium 3.8 Chloride 105 Carbon Dioxide 24 Anion Gap 7 BUN 10 Creatinine 0.66 Est GFR ( Amer) > 60 Est GFR (Non-Af Amer) > 60 Glucose 90 Calcium 8.5 11/22/18 11/22/18 11/22/18 12:20 12:20 18:30 Creatine Kinase 258 H 258 H Troponin I < 0.012 NT-Pro-B Natriuret Pep 11/22/18 11/23/18 11/23/18 18:30 00:38 00:38 Creatine Kinase 368 H Troponin I < 0.012 0.042 NT-Pro-B Natriuret Pep 11/23/18 06:25 Creatine Kinase Troponin I NT-Pro-B Natriuret Pep 393 Impressions: Head CT 11/22/18 12:01 IMPRESSION: No acute intracranial pathology. EVIDENCE OF ACUTE STROKE: NO. Cervical Spine CT 11/22/18 12:03 IMPRESSION: No fracture or static subluxation of the cervical spine. Multilevel cervical disc and facet degenerative disease. Shoulder X-Ray 11/22/18 12:03 IMPRESSION: There is a comminuted, impacted fracture of the proximal right humerus. Consider CT to further evaluate fracture anatomy. Tibia/Fibula X-Ray 11/22/18 13:27 IMPRESSION: NEGATIVE STUDY OF THE LEFT TIBIA AND FIBULA. NO RADIOGRAPHIC EVIDENCE OF ACUTE INJURY. Hip X-Ray 11/22/18 14:41 IMPRESSION: NO ACUTE FINDINGS. Assessment and Plan - Diagnosis (1) Acute encephalopathy Is this a current diagnosis for this admission?: Yes Plan: 11/24: Multifactorial from hyponatremia, acute delirium and severe shoulder pain in a dementia patient. Improving. Will take off restraints today. 11/25: Resolved. Now at her baseline mentation. (2) Acute hyponatremia Is this a current diagnosis for this admission?: Yes Plan: Likely symptomatic hyponatremia from dehydration. Although sodium level was not severely low at 130, this likely contributed to patient's dizziness and fall given her being an elderly demented patient. Continue IV fluids. Repeat BMP tomorrow. (3) Fracture of humeral head, right, closed Qualifiers: Encounter type: initial encounter Qualified Code(s): S42.291A - Other displaced fracture of upper end of right humerus, initial encounter for closed fracture Is this a current diagnosis for this admission?: Yes Plan: As mentioned, orthopedics has recommended conservative/nonsurgical management. (4) Rheumatoid arthritis Is this a current diagnosis for this admission?: Yes Plan: On methotrexate and Humira at home. - Time Time Spent with patient: 25-34 minutes
[2018-11-25] MEDS: LORAZEPAM 0.5 MG TABLET PO PRN (17:14)
[2018-11-25 20:59] LABS: APPEARANCE,URINE SLIGHTLY-CLOUDY; BILIRUBIN,URINE NEGATIVE (NEGATIVE); COLOR,URINE YELLOW; GLUCOSE, URINE NEGATIVE (NEGATIVE); KETONES,URINE NEGATIVE (NEGATIVE); LEUKOCYTE ESTERASE,URINE LARGE (NEGATIVE); NITRITE,URINE POSITIVE (NEGATIVE); PROTEIN,URINE NEGATIVE (NEGATIVE); URINE SPECIFIC GRAVITY 1.011; UROBILINOGEN,URINE NEGATIVE mg/dL (<2.0)
[2018-11-25] MEDS: ATORVASTATIN CALCIUM 20 MG TABLET PO SCH (21:49)
[2018-11-26] MEDS ORDERED: CEFTRIAXONE 1 GM/D5W RTU 1 GM/50 ML RTUPB IV SCH (10:00)
[2018-11-26] MEDS ORDERED: LOSARTAN POTASSIUM 25 MG TABLET PO SCH (10:00)
[2018-11-26] MEDS: FAMOTIDINE 20 MG TABLET PO SCH ×2 (10:06→22:32)
[2018-11-26] MEDS: DONEPEZIL HCL 5 MG TABLET PO SCH (10:06)
[2018-11-26] MEDS: ENOXAPARIN SODIUM INJ 30 MG/0.3 ML DISP.SYRIN SUBCUT SCH (10:07)
[2018-11-26] MEDS: FOLIC ACID 1 MG TABLET PO SCH (10:07)
[2018-11-26] MEDS: CEFTRIAXONE SODIUM 1,000 MG in DEXTROSE 5%-WATER 50 ML IV SCH (10:08)
[2018-11-26] MEDS: OXYCODONE-ACETAMINOPHEN 5-325 MG TABLET PO PRN ×2 (13:12→22:32)
--- NOTE | 2018-11-26 15:04 | PDOC PROGRESS REPORT ---
Subjective Progress Note for:: 11/26/18 Subjective:: 11/24: Some care. Reviewed chart and course. This is an 83-year-old female with a past medical history of dementia, rheumatoid arthritis on methotrexate and Humira gastroesophageal reflux disease, and hypercholesterolemia who fell and was found confused at home. She also presented with right shoulder pain and was noted to have been packed and right humeral fracture. Patient did have episodes of agitation and required restraints. This morning, she appears comfortable and appears to be at her baseline. She is oriented to person and place. Will take off restraints. Patient is not able to tell me that she did feel dizzy at home and hence fell on her right shoulder on the porch. She did have a low sodium of 130 when she presented and this appears to be acute compared to her previous sodium levels. Orthopedics has recommended nonsurgical/conservative management of her right shoulder fracture and outpatient Ortho follow-up. Patient's daughter says that patient does have fall risk at home and lives alone. She says she is unable to take care of patient at home and is concerned about her safety. 11/25: She is at her baseline mentation. No combative behavior agitation last night. Right shoulder pain is well controlled. Rehab placement process silviaa jess. She will be discharged to rehab/SNF once approved and when she gets a bed. 11/26: No acute event overnight. Denies acute complaints. No acute issues patient is just awaiting rehab/SNF placement. Reason For Visit: ENCEPHALOPATHY,HYPONATREMIA Physical Exam Vital Signs: Temp Pulse Resp BP Pulse Ox 97.6 F 73 12 177/72 H 99 11/26/18 07:42 11/26/18 07:42 11/26/18 07:42 11/26/18 07:42 11/26/18 07:42 Intake & Output 11/25/18 11/26/18 11/27/18 06:59 06:59 06:59 Intake Total 1720 2063 Output Total 200 Balance 1720 1863 Weight 115 lb 8.356 oz 119 lb 4.321 oz General appearance: PRESENT: no acute distress, well-developed, well-nourished Head exam: PRESENT: atraumatic, normocephalic Eye exam: PRESENT: conjunctiva pink, EOMI, PERRLA. ABSENT: scleral icterus Ear exam: PRESENT: normal external ear exam Mouth exam: PRESENT: moist, tongue midline Neck exam: ABSENT: carotid bruit, JVD, lymphadenopathy, thyromegaly Respiratory exam: PRESENT: clear to auscultation marvin. ABSENT: rales, rhonchi, wheezes Cardiovascular exam: PRESENT: RRR. ABSENT: diastolic murmur, rubs, systolic murmur Pulses: PRESENT: normal dorsalis pedis pul GI/Abdominal exam: PRESENT: normal bowel sounds, soft. ABSENT: distended, gua rding, mass, organolmegaly, rebound, tenderness Rectal exam: PRESENT: deferred Extremities exam: PRESENT: full ROM. ABSENT: calf tenderness, clubbing, pedal edema Neurological exam: PRESENT: alert, awake, oriented to person, oriented to place, oriented to time, oriented to situation, CN II-XII grossly intact. ABSENT: devon r sensory deficit Results Laboratory Results: 11/23/18 06:25 11/25/18 06:00 11/25/18 20:42 Urine Color YELLOW Urine Appearance SLIGHTLY-CLOUDY Urine pH 6.0 Ur Specific [place] 1.011 Urine Protein NEGATIVE Urine Glucose (UA) NEGATIVE Urine Ketones NEGATIVE Urine Blood SMALL H Urine Nitrite POSITIVE H Ur Leukocyte Esterase LARGE H Urine WBC (Auto) 64 Urine RBC (Auto) 8 11/22/18 11/22/18 11/22/18 12:20 12:20 18:30 Creatine Kinase 258 H 258 H Troponin I < 0.012 NT-Pro-B Natriuret Pep 11/22/18 11/23/18 11/23/18 18:30 00:38 00:38 Creatine Kinase 368 H Troponin I < 0.012 0.042 NT-Pro-B Natriuret Pep 11/23/18 06:25 Creatine Kinase Troponin I NT-Pro-B Natriuret Pep 393 Impressions: Head CT 11/22/18 12:01 IMPRESSION: No acute intracranial pathology. EVIDENCE OF ACUTE STROKE: NO. Cervical Spine CT 11/22/18 12:03 IMPRESSION: No fracture or static subluxation of the cervical spine. Multilevel cervical disc and facet degenerative disease. Shoulder X-Ray 11/22/18 12:03 IMPRESSION: There is a comminuted, impacted fracture of the proximal right humerus. Consider CT to further evaluate fracture anatomy. Tibia/Fibula X-Ray 11/22/18 13:27 IMPRESSION: NEGATIVE STUDY OF THE LEFT TIBIA AND FIBULA. NO RADIOGRAPHIC EVIDENCE OF ACUTE INJURY. Hip X-Ray 11/22/18 14:41 IMPRESSION: NO ACUTE FINDINGS. Assessment and Plan - Diagnosis (1) Acute encephalopathy Is this a current diagnosis for this admission?: Yes Plan: 11/24: Multifactorial from hyponatremia, acute delirium and severe shoulder pain in a dementia patient. Improving. Will take off restraints today. 11/25: Resolved. Now at her baseline mentation. (2) Acute hyponatremia Is this a current diagnosis for this admission?: Yes Plan: Likely symptomatic hyponatremia from dehydration. Although sodium level was not severely low at 130, this likely contributed to patient's dizziness and fall given her being an elderly demented patient. Continue IV fluids. Repeat BMP tomorrow. 11/25: Resolved. (3) Fracture of humeral head, right, closed Qualifiers: Encounter type: initial encounter Qualified Code(s): S42.291A - Other displaced fracture of upper end of right humerus, initial encounter for closed fracture Is this a current diagnosis for this admission?: Yes Plan: As mentioned, orthopedics has recommended conservative/nonsurgical management. (4) Rheumatoid arthritis Is this a current diagnosis for this admission?: Yes Plan: On methotrexate and Humira at home. (5) UTI (urinary tract infection) Is this a current diagnosis for this admission?: Yes Plan: Continue Rocephin. - Time Time Spent with patient: 25-34 minutes
[2018-11-26] MEDS ORDERED: HYDRALAZINE HCL INJ/PF 20 MG/1 ML SDV IV PRN (17:54)
[2018-11-26] MEDS: LORAZEPAM 0.5 MG TABLET PO PRN (18:31)
[2018-11-26] MEDS: ATORVASTATIN CALCIUM 20 MG TABLET PO SCH (22:32)
[2018-11-26] MEDS: HALOPERIDOL 0.5 MG TABLET PO PRN (22:32)
[2018-11-27] MEDS: NORMAL SALINE 1000 ML 1,000 ML IV PRN (05:31)
[2018-11-27] MEDS ORDERED: LOSARTAN POTASSIUM 50 MG TABLET PO SCH (10:00)
[2018-11-27] MEDS ORDERED: (PENDING PHARMACY ID) (Ergocalciferol (Vitamin D2) [Vitamin D2] 50 MCG) PO SCH (10:00)
[2018-11-27] MEDS ORDERED: CHOLECALCIFEROL (D3) 1,000 UNIT (25 MCG) TABLET PO SCH (10:00)
[2018-11-27] MEDS ORDERED: METHOTREXATE SODIUM 2.5 MG TABLET PO SCH (10:00)
[2018-11-27] MEDS: ACETAMINOPHEN 325 MG TABLET PO PRN (10:35)
[2018-11-27] MEDS: CEFTRIAXONE SODIUM 1,000 MG in DEXTROSE 5%-WATER 50 ML IV SCH (10:35)
[2018-11-27] MEDS: FOLIC ACID 1 MG TABLET PO SCH (10:36)
[2018-11-27] MEDS: FAMOTIDINE 20 MG TABLET PO SCH (10:36)
[2018-11-27] MEDS: DONEPEZIL HCL 5 MG TABLET PO SCH (10:36)
[2018-11-27] MEDS: ENOXAPARIN SODIUM INJ 30 MG/0.3 ML DISP.SYRIN SUBCUT SCH (10:39)
--- NOTE | 2018-11-27 12:15 | PDOC TRANSFER SUMMARY ---
General - Admit/Disc Date/PCP Admission Date/Primary Care Provider: 11/24/18 10:32 STELLA KIDD MD Discharge Date: 11/27/18 - Discharge Diagnosis (1) Acute encephalopathy Is this a current diagnosis for this admission?: Yes (2) Acute hyponatremia Is this a current diagnosis for this admission?: Yes (3) Fracture of humeral head, right, closed Is this a current diagnosis for this admission?: Yes (4) Rheumatoid arthritis Is this a current diagnosis for this admission?: Yes (5) UTI (urinary tract infection) Is this a current diagnosis for this admission?: Yes - Additional Information Resuscitation Status: Do Not Resuscitate Prescriptions: Amoxicillin/Potassium Clav [Augmentin 500-125 Tablet] 1 each PO BID 3 Days #6 tablet Losartan Potassium [Cozaar 50 mg Tablet] 50 mg PO DAILY #30 tablet Home Medications: Adalimumab [Humira(Cf) Pen] 40 mg SQ Q21D 11/23/18 Atorvastatin Calcium [Lipitor 20 mg Tablet] 20 mg PO QHS 11/23/18 Donepezil HCl [Aricept 5 mg Tablet] 5 mg PO DAILY 11/23/18 Ergocalciferol (Vitamin D2) [Vitamin D2] 50 mcg PO FR@1000 11/23/18 Folic Acid [Folvite 1 mg Tablet] 1 mg PO DAILY 11/23/18 Methotrexate Sodium [Rheumatrex 2.5 mg Tablet] 10 mg PO FR@1000 11/23/18 Omeprazole 40 mg PO DAILY 11/23/18 Amoxicillin/Potassium Clav [Augmentin 500-125 Tablet] 1 each PO BID 3 Days #6 tablet 11/27/18 Losartan Potassium [Cozaar 50 mg Tablet] 50 mg PO DAILY #30 tablet 11/27/18 History of Present Illness Admission Date/PCP: 11/24/18 10:32 STELLA KIDD MD History of Present Illness: Admitting hospitalist's H&P: ZACHERY IVEY is a 83 year old female history of dementia, rheumatoid arthritis on methotrexate Humira gastroesophageal reflux disease, hypercholesterolemia brought into the emergency room by patient's daughter for her found her confused. Patient lives alone and her daughter lives next door , yesterday patient was fine this morning was found confused and complaining of right shoulder pain decided to bring her to the hospital for further evaluation. The emergency room work-up indicates impacted right humeral fracture. Medical consult was called requested for possible admission and Ortho consult tomorrow morning. Patient is confused unable to give much information due to underlying dementia. Patient's daughter was noted at the bedside I spoke to her on the phone she confirmed the history that she was confused complaining of right shoulder pain and brought to the emergency room for further evaluation. Daughter say her wishes are DNR/DNI. And requesting for placement in a rehab facility. Hospital Course Hospital Course: This is an 83-year-old female with a past medical history of dementia, rheumatoid arthritis on methotrexate and Humira, gastroesophageal reflux disease, and hypercholesterolemia who fell and was found confused at home. She also presented with right shoulder pain and was noted to have been packed and right humeral fracture. Patient did have episodes of agitation and initially required restraints. 11/24: This morning, she appears comfortable and appears to be at her baseline. She is oriented to person and place. Will take off restraints. Patient is not able to tell me that she did feel dizzy at home and hence fell on her right shoulder on the porch. She did have a low sodium of 130 when she presented and this appears to be acute compared to her previous sodium levels. Orthopedics has recommended nonsurgical/conservative management of her right shoulder fracture and outpatient follow-up. Patient's daughter says that patient does have fall risk at home and lives alone. She says she is unable to take care of patient at home and is concerned about her safety. 11/25: She was also started on Rocephin for UTI. She did return to her baseline mentation. She was also started on losartan as her blood pressures started running high. She continued to do well and will be discharged to [facility] as she will need 30 days of rehab. She will be discharged on 3 days of Augmentin for her UTI. Physical Exam Vital Signs: Temp Pulse Resp BP Pulse Ox 97.5 F 69 16 148/64 H 100 11/27/18 08:04 11/27/18 08:04 11/27/18 08:04 11/27/18 08:04 11/27/18 08:04 Intake & Output 11/26/18 11/27/18 11/28/18 06:59 06:59 06:59 Intake Total 2063 1967 50 Output Total 200 1050 Balance 1863 917 50 Weight 119 lb 4.321 oz 116 lb 6.465 oz General appearance: PRESENT: no acute distress, well-developed, well-nourished Head exam: PRESENT: atraumatic, normocephalic Eye exam: PRESENT: conjunctiva pink, EOMI, PERRLA. ABSENT: scleral icterus Ear exam: PRESENT: normal external ear exam Mouth exam: PRESENT: moist, tongue midline Neck exam: ABSENT: carotid bruit, JVD, lymphadenopathy, thyromegaly Respiratory exam: PRESENT: clear to auscultation marvin. ABSENT: rales, rhonchi, wheezes Cardiovascular exam: PRESENT: RRR. ABSENT: diastolic murmur, rubs, systolic murmur Pulses: PRESENT: normal dorsalis pedis pul GI/Abdominal exam: PRESENT: normal bowel sounds, soft. ABSENT: distended, guarding, mass, organolmegaly, rebound, tenderness Rectal exam: PRESENT: deferred Neurological exam: PRESENT: alert, awake, oriented to person, oriented to place, CN II-XII grossly intact. ABSENT: oriented to time, motor sensory deficit Results Laboratory Results: 11/23/18 06:25 11/25/18 06:00 11/22/18 11/22/18 11/22/18 12:20 12:20 18:30 Creatine Kinase 258 H 258 H Troponin I < 0.012 NT-Pro-B Natriuret Pep 11/22/18 11/23/18 11/23/18 18:30 00:38 00:38 Creatine Kinase 368 H Troponin I < 0.012 0.042 NT-Pro-B Natriuret Pep 11/23/18 06:25 Creatine Kinase Troponin I NT-Pro-B Natriuret Pep 393 Impressions: Head CT 11/22/18 12:01 IMPRESSION: No acute intracranial pathology. EVIDENCE OF ACUTE STROKE: NO. Cervical Spine CT 11/22/18 12:03 IMPRESSION: No fracture or static subluxation of the cervical spine. Multilevel cervical disc and facet degenerative disease. Shoulder X-Ray 11/22/18 12:03 IMPRESSION: There is a comminuted, impacted fracture of the proximal right humerus. Consider CT to further evaluate fracture anatomy. Tibia/Fibula X-Ray 11/22/18 13:27 IMPRESSION: NEGATIVE STUDY OF THE LEFT TIBIA AND FIBULA. NO RADIOGRAPHIC EVIDENCE OF ACUTE INJURY. Hip X-Ray 11/22/18 14:41 IMPRESSION: NO ACUTE FINDINGS. Qualifiers - * PATIENT BEING DISCHARGED WITH ANY OF THE FOLLOWING DIAGNOSIS: No Acute Heart Failure - Is this a Heart Failure Patient?: No LVEF < 40%?: No- if no continue to question #3 3. Anticoagulant therapy for permanect/persistent/paraoxysmal Afib or Aflutter: N/A
[2018-11-27 16:54] VITALS: BP 148/58
== END 2018-11-27 18:00 | DRG 640 ==
LOC: ER 11:38 → EH 15:04 → INTOOBSV 15:12 → OBSVTOIN 15:12 → 4N 16:21 → OBSVTOIN 11-24 10:32
PROVIDERS: ADMIT Internal Medicine; ATTEND Internal Medicine
DX: E87.1 Hypo-osmolality and hyponatremia (principal); G93.41 Metabolic encephalopathy; S42.201A Unspecified fracture of upper end of right humerus, initial encounter for closed fracture; N39.0 Urinary tract infection, site not specified; M06.9 Rheumatoid arthritis, unspecified; Z66 Do not resuscitate; Z60.2 Problems related to living alone; K21.9 Gastro-esophageal reflux disease without esophagitis; E78.00 Pure hypercholesterolemia, unspecified; E86.0 Dehydration; F03.90 Unspecified dementia, unspecified severity, without behavioral disturbance, psychotic disturbance, mood disturbance, and anxiety; B95.2 Enterococcus as the cause of diseases classified elsewhere; Z79.899 Other long term (current) drug therapy; Z78.1 Physical restraint status; Z88.2 Allergy status to sulfonamides; Z88.8 Allergy status to other drugs, medicaments and biological substances; W18.30XA Fall on same level, unspecified, initial encounter; Y92.098 Other place in other non-institutional residence as the place of occurrence of the external cause; Z90.49 Acquired absence of other specified parts of digestive tract; Z90.710 Acquired absence of both cervix and uterus; Z82.49 Family history of ischemic heart disease and other diseases of the circulatory system
CPT/HCPCS: 36415; 70450; 72125; 73522; 80048; 80053; 80061; 81001; 82550; 82962; 83036; 83735; 83880; 84443; 84484; 85025; 85610; 87086; 87088; 87186; 93005; 93010; 99285; J0360; J0696; J1650; J2270; J3490; J7030; J7060; J8610